=== PATIENT | female | born 1945 | race Caucasian/White ===

== ENCOUNTER 2018-02-19 10:32 | Emergency (ER) | payer MEDICARE ==
--- NOTE | 2018-02-19 11:12 | ER Document Report ---
ED Medical Screen (RME) - General Chief Complaint: Fall Injury Stated Complaint: FALL/FOOT PAIN Time Seen by Provider: 02/19/18 11:10 Mode of Arrival: Ambulatory Information source: Patient TRAVEL OUTSIDE OF THE [place] IN LAST 30 DAYS: No - HPI Patient complains to provider of: R foot pain Onset: Other - pt. fell 4 days ago. C/o R foot pain - Related Data Allergies/Adverse Reactions: No Known Allergies Allergy (Verified 02/19/18 10:33) Past Medical History - Past Medical History Cardiac Medical History: Reports: Hx Hypercholesterolemia, Hx Hypertension - meds x 7 years Denies: Hx Coronary Artery Disease, Hx Heart Attack Pulmonary Medical History: Reports: Hx Asthma, Hx Bronchitis Denies: Hx COPD, Hx Pneumonia Neurological Medical History: Denies: Hx Cerebrovascular Accident, Hx Seizures Musculoskeltal Medical History: Reports Hx Arthritis Past Surgical History: Reports: Hx Appendectomy, Hx Cardiac Surgery - A/V pacemaker, Hx Pacemaker - Medtronic, pacemaker checklist on chart, Hx Tonsillectomy - Immunizations Hx Diphtheria, Pertussis, Tetanus Vaccination: Yes - 2006 Physical Exam - Vital signs Vitals: Temp Pulse Resp BP Pulse Ox 98.8 F 80 16 156/53 H 97 02/19/18 10:48 02/19/18 10:48 02/19/18 10:48 02/19/18 10:48 02/19/18 10:48 Course - Vital Signs Vital signs: Temp Pulse Resp BP Pulse Ox 98.8 F 80 16 156/53 H 97 02/19/18 10:48 02/19/18 10:48 02/19/18 10:48 02/19/18 10:48 02/19/18 10:48 Doctor's Discharge - Discharge Referrals: KANNAN HOU MD [Primary Care Provider] - Follow up as needed
--- NOTE | 2018-02-19 11:35 | RADIOLOGY REPORT (SQ) ---
EXAM DESCRIPTION: FOOT RIGHT COMPLETE COMPLETED DATE/TIME: 02/19/2018 11:25 am REASON FOR STUDY: fall pain delayed for a month COMPARISON: None. NUMBER OF VIEWS: Three views. TECHNIQUE: AP, lateral and oblique radiographic images acquired of the right foot. LIMITATIONS: None. FINDINGS: MINERALIZATION: Normal. BONES: No acute fracture or dislocation. No worrisome bone lesions. JOINTS: No effusions. SOFT TISSUES: No soft tissue swelling. No foreign body. OTHER: No other significant finding. IMPRESSION: NEGATIVE STUDY OF THE RIGHT FOOT. NO RADIOGRAPHIC EVIDENCE OF ACUTE INJURY. TECHNICAL DOCUMENTATION: JOB ID: [id number] [employer]- All Rights Reserved Reading location - IP/workstation name: [email or web address]
[2018-02-19] MEDS ORDERED: ACETAMINOPHEN 325 MG TABLET PO ONE (11:53)
--- NOTE | 2018-02-19 11:59 | ER Document Report ---
HPI - HPI Pain Level: 2 Notes: Patient is a 72-year-old female with a history of chronic back pain, sciatica bilaterally, pacemaker placement who presents to the emergency department complaining of right lateral dorsal foot pain status post injury about a month ago. Patient states that she is walking and she had a flareup of her sciatica causing her to roll her ankle/foot. Pt states that she has sciatica flare-ups often. Patient states that she has had continued intermittent pain since then, but increasing over the last couple days. She has not noticed any redness or swelling otherwise. The pain does not radiate. Patient states that she is still able to ambulate and perform ADLs without any other difficulties. Patient states that she is here to make sure she did not break anything in her foot. She has not seen a specialist in about a year. Denies drug allergies. Denies any prolonged immobilization, distance travel, recent surgery/trauma, personal cancer history, hormone use, smoking, or previous DVT/PE. Denies any headache, fever, head injury, LOC, neck pain, changes in vision/speech/mentation/hearing, URI, sore throat, chest pain, palpitations, syncope, cough, shortness of breath, wheeze, dyspnea, abdominal pain, nausea/vomiting/diarrhea, urinary retention, dysuria, hematuria, loss of control of bowel or bladder, saddle anesthesia, muscle paralysis/weakness, or rash. - ROS Systems Reviewed and Negative: Yes All other systems reviewed and negative - REPRODUCTIVE Reproductive: DENIES: : - DERM Skin Color: Normal <NICA MARTÍNEZ - Last Filed: 02/19/18 11:54> <STEFAN WILKERSON - Last Filed: 02/20/18 08:18> - HPI Time Seen by Provider: 02/19/18 11:10 Past Medical History - General Information source: Patient - Social History Smoking Status: Former Smoker Frequency of alcohol use: 2 drinks a day Drug Abuse: None Family History: Reviewed & Not Pertinent Patient has suicidal ideation: No Patient has homicidal ideation: No - Past Medical History Cardiac Medical History: Reports: Hx Hypercholesterolemia, Hx Hypertension - meds x 7 years Denies: Hx Coronary Artery Disease, Hx Heart Attack Pulmonary Medical History: Reports: Hx Asthma, Hx Bronchitis Denies: Hx COPD, Hx Pneumonia Neurological Medical History: Denies: Hx Cerebrovascular Accident, Hx Seizures Renal/ Medical History: Denies: Hx Peritoneal Dialysis Musculoskeletal Medical History: Reports Hx Arthritis Past Surgical History: Reports: Hx Appendectomy, Hx Cardiac Surgery - A/V pacemaker, Hx Pacemaker - Medtronic, pacemaker checklist on chart, Hx Tonsillectomy - Immunizations Hx Diphtheria, Pertussis, Tetanus Vaccination: Yes - 2006 Hx Pneumococcal Vaccination: 10/18/10 <NICA MARTÍNEZ - Last Filed: 02/19/18 11:54> Vertical Provider Document - CONSTITUTIONAL Agree With Documented VS: Yes Notes: PHYSICAL EXAMINATION: GENERAL: Well-appearing, well-nourished and in no acute distress. LUNGS: Breath sounds clear to auscultation bilaterally and equal. No wheezes rales or rhonchi. HEART: Regular rate and rhythm without murmurs, rubs, gallops. Musculoskeletal: Rt foot/ankle: FROM to passive/active. Strength 5+/5. N/V intact distal. + tenderness to the area of the ATFL (reproduces pain described). No bony tenderness of the foot. Achilles intact. Extremities: Trace pitting b/l. Peripheral pulses 2+. Capillary refill less than 3 seconds. Paul neg b/l. NEUROLOGICAL: Normal speech, normal gait. Normal sensory, motor exams PSYCH: Normal mood, normal affect. SKIN: Warm, Dry, normal turgor, no rashes or lesions noted. - INFECTION CONTROL TRAVEL OUTSIDE OF THE [place] IN LAST 30 DAYS: No <NICA MARTÍNEZ - Last Filed: 02/19/18 11:54> Course - Re-evaluation Re-evalutation: 02/19/18 11:58 Patient is an afebrile, well-hydrated, 72-year-old female who presents to the ED with Rt foot pain which I suspect to be a sprain versus strain. Vitals are acceptable without any significant tachycardia, tachypnea, or hypoxia. PE is otherwise unremarkable for any neurovascular compromise, obvious tendon/ligament rupture, obvious fracture/dislocation, septic joint. X-ray was unremarkable for any acute pathology. Pt given tylenol PO. Patient is nontoxic-appearing. Patient is able to ambulate and weight-bear. No other labs or imaging warranted at this time based on H&P. Conservative measures otherwise for symptoms. Recheck with your PCM in 3-5 days. Consider consult orthopedics. Return to the ED with any worsening/concerning symptoms otherwise as reviewed in discharge. Patient is in agreement. - Vital Signs Vital signs: Temp Pulse Resp BP Pulse Ox 98.8 F 80 16 156/53 H 97 02/19/18 10:48 02/19/18 10:48 02/19/18 10:48 02/19/18 10:48 02/19/18 10:48 <NICA MARTÍNEZ - Last Filed: 02/19/18 11:54> - Vital Signs Vital signs: Temp Pulse Resp BP Pulse Ox 99.4 F 78 20 132/78 H 97 02/19/18 12:16 02/19/18 12:16 02/19/18 12:16 02/19/18 12:16 02/19/18 12:16 <STEFAN WILKERSON - Last Filed: 02/20/18 08:18> Discharge <NICA MARTÍNEZ - Last Filed: 02/19/18 11:54> <STEFAN WILKERSON - Last Filed: 02/20/18 08:18> - Discharge Clinical Impression: Right foot pain Condition: Stable Disposition: HOME, SELF-CARE Additional Instructions: Rest, Ice, Compression, Elevation Tylenol/ibuprofen as needed Light stretches daily Strength exercises as able Moist heat and massage may help F/u with your PCP in 3-5 days for a recheck Consider consult(s) with Orthopedics/physical therapy for ongoing/worsening symptoms Return to the ED with any worsening symptoms and/or development of fever, headache, chest pain, palpitations, syncope, shortness of breath, trouble breathing, abdominal pain, n/v/d, muscle weakness/paralysis, numbness/tingling, swelling, redness, or other worsening symptoms that are concerning to you. Forms: Elevated Blood Pressure Referrals: KANNAN HOU MD [ACTIVE STAFF] - Follow up as needed [facility] [Provider Group] - Follow up as needed Cosign for MLP Consult - Cosign -: I was personally available for consultation in the Emergency Department and serving as supervising physician for the MLP. Cosign for MLP: . <STEFAN WILKERSON - Last Filed: 02/20/18 08:18>
[2018-02-19 12:20] VITALS: BP 132/78
== END 2018-02-19 12:20 | disposition home or self-care (01) ==
LOC: ER 10:32
DX: M79.671 Pain in right foot (principal); X50.9XXA Other and unspecified overexertion or strenuous movements or postures, initial encounter; Y93.01 Activity, walking, marching and hiking; I10 Essential (primary) hypertension; J45.909 Unspecified asthma, uncomplicated; Z95.0 Presence of cardiac pacemaker; Z87.891 Personal history of nicotine dependence
CPT/HCPCS: 99283

== ENCOUNTER → 2018-04-03 | Outpatient (CLI) | payer MEDICARE ==
--- NOTE | 2018-04-03 11:21 | RADIOLOGY REPORT (SQ) ---
EXAM DESCRIPTION: CAROTID DOPPLER COMPLETED DATE/TIME: 04/03/2018 10:02 am REASON FOR STUDY: ATHEROSCLEROSIS I10 ESSENTIAL (PRIMARY) HYPERTENSION I25.10 ATHSCL HEART DISEASE OF [place] CORONARY ARTERY W/O AN COMPARISON: None. TECHNIQUE: Grayscale ultrasound, Doppler velocity and spectra, and color Doppler images acquired of the extra-cranial carotid and vertebral arteries. Images stored on PACS. LIMITATIONS: None. FINDINGS: RIGHT CAROTID CCA Velocities: Within normal limits. ICA Velocities Peak systolic 0.63 m/s. End diastolic 0.19 m/s. Proximal ICA/CCA peak systolic ratio 1.9. Mild heterogeneous plaque distal common and proximal right ICA. LEFT CAROTID CCA Velocities: Within normal limits. ICA Velocities Peak systolic 0.81 m/s. End diastolic 0.9 m/s. Proximal ICA/CCA peak systolic ratio 2.2. Minimal plaque in the bulb. VERTEBRAL ARTERIES: Antegrade flow. Normal waveforms. SUBCLAVIAN ARTERIES: Not imaged. OTHER: No other significant finding. IMPRESSION: NO HEMODYNAMICALLY SIGNIFICANT STENOSIS. COMMENT: Quality ID #195: Velocity criteria are extrapolated from the diameter data as defined by t he Society of Radiologists in Ultrasound Consensus Conference. Radiology 2003: 229; 340-346. TECHNICAL DOCUMENTATION: JOB ID: [id number] [employer]- All Rights Reserved Reading location - IP/workstation name: [email or web address]
== END ==
LOC: SP 08:35
PROVIDERS: ATTEND Family Medicine
DX: I25.10 Atherosclerotic heart disease of native coronary artery without angina pectoris (principal)
CPT/HCPCS: 93880

== ENCOUNTER → 2018-05-03 | Outpatient (CLI) | payer MEDICARE ==
--- NOTE | 2018-05-05 19:09 | XCELERA REPORT ---
[address] [address] Lower Extremity Arterial Evaluation Name: KANCHAN DASH Age: 72 yrs Gender: Female : 1945 Patient Status: Preadmit Patient Location: Study Date: 05/03/2018 09:13 AM Procedure: A color flow and duplex scan of the lower extremity arteries was performed bilaterally with velocity and waveform anaylsis. Reason For Study: ABSCENCE OF PULSES Ordering Physician: NEHA BROWN Performed By: Tommie Doyle Measurements and Calculations Right Left MICA PATCHER PSV 127.3 127.3 cm/sec Prox PFA PSV -78.9 -87.1 cm/sec Prox SFA PSV 94.8 93.0 cm/sec Mid SFA PSV -85.5 -99.3 cm/sec Dist SFA PSV -71.7 -87.7 cm/sec Prox Pop A PSV 68.1 61.3 cm/sec Dist ANA PSV 85.4 75.5 cm/sec Mid MANUFACTURING ENGINEER MACHINING PSV 54.1 cm/sec Dist MANUFACTURING ENGINEER MACHINING PSV -41.9 110.6 cm/sec Corona Pedis PSV -33.2 -70.7 cm/sec Right Side Arterial Evaluation Normal velocity and triphasic waveforms noted from the Common Femoral artery to the infrageniculate level. Triphasic, no spectral broadening with low normal velocity in the Dorsalis Pedis and distal Posterior Tibial arteries. Retrograde flow in distal Posterior Tibial Ankle Brachial index not obtained. Left Side Arterial Evaluation Normal velocity and triphasic waveforms noted from the Common Femoral artery to the infrageniculate vessels . Ankle Brachial index not obtained. Interpretation Summary Mild hemodynamically significant lesions in the right lower extremity only, on duplex imaging, at rest. No hemodynamically significant lesions in the left lower extremity only, on duplex imaging, at rest. Findings in infrageniculate right side, consistent with well compensated , mild disease. : NEHA BROWN > Neha Brown
== END ==
LOC: SP 13:19
PROVIDERS: ATTEND Surgery
DX: R09.89 Other specified symptoms and signs involving the circulatory and respiratory systems (principal)
CPT/HCPCS: 93925

== ENCOUNTER 2018-10-10 14:33 | Inpatient (IN) | payer MEDICARE ==
[2018-10-10 14:58] LABS: INTERNATIONAL RATION (INR) 0.98; PARTIAL THROMBOPLASTIN TIME 26.9 SEC (23.5-35.8)
--- NOTE | 2018-10-10 15:03 | RADIOLOGY REPORT (SQ) ---
EXAM DESCRIPTION: CT HEAD WITHOUT COMPLETED DATE/TIME: 10/10/2018 2:47 pm REASON FOR STUDY: STROKE COMPARISON: CT brain 01/28/2011, 08/20/2006 TECHNIQUE: Axial images acquired through the brain without intravenous contrast. Images reviewed wi th bone, brain and subdural windows. Additional sagittal and coronal reconstructions were generated. Images stored on PACS. All CT scanners at this facility use dose modulation, iterative reconstruction, and/or weight based d osing when appropriate to reduce radiation dose to as low as reasonably achievable (ALARA). [facility]: Dose Right [facility]: CareDose [facility]: Dose Right [facility]: Teradose 4D [facility]: [employer] RADIATION DOSE: 53 mGy. LIMITATIONS: None. FINDINGS: VENTRICLES: Normal size and contour. CEREBRUM: No masses. No hemorrhage. No midline shift. No evidence for acute infarction. Normal gra y/white matter differentiation. No areas of low density in the white matter. CEREBELLUM: No masses. No hemorrhage. No alteration of density. No evidence for acute infarction. EXTRAAXIAL SPACES: No fluid collections. No masses. ORBITS AND GLOBE: No intra- or extraconal masses. Post cataract surgery bilaterally. CALVARIUM: No fracture. PARANASAL SINUSES: No fluid or mucosal thickening. SOFT TISSUES: No mass or hematoma. OTHER: No other significant finding. IMPRESSION: NORMAL BRAIN CT WITHOUT CONTRAST. EVIDENCE OF ACUTE STROKE: NO. COMMENT: Pertinent findings on the imaging study reported as a CRITICAL RESULT to the patient's kary se in the emergency room at14:25 on 10/10/2018. Category of Critical Result: CT code stroke Quality ID # 436: Final reports with documentation of one or more dose reduction techniques (e.g., Au tomated exposure control, adjustment of the mA and/or kV according to patient size, use of iterative reconstruction technique) TECHNICAL DOCUMENTATION: JOB ID: [id number] [employer]- All Rights Reserved Reading location - IP/workstation name: [email or web address]
[2018-10-10 15:04] LABS: ABSOLUTE LYMPHOCYTES (AUTO) 1.2 10^3/uL (0.5-4.7); ABSOLUTE NEUT (AUTO) 4.4 10^3/uL (1.7-8.2); BASOPHILS % (AUTO) 0.3 % (0-2); EOSINOPHILS % (AUTO) 0.3 % (0-6); HEMATOCRIT 35.8 % (36.0-47.0); HEMOGLOBIN 12.5 g/dL (12.0-15.5); LYMPHOCYTES % (AUTO) 18.5 % (13-45); MEAN CORPUSCULAR HGB CONC 35.1 g/dL (32.0-36.0); MEAN CORPUSCULAR VOLUME 97 fl (80-97); MONOCYTES % (AUTO) 14.5 % (3-13); PLATELET COUNT 178 10^3/uL (150-450); RED BLOOD COUNT 3.69 10^6/uL (3.72-5.28); RED CELL DISTRIBUTION WIDTH 12.8 % (11.5-14.0); SEGMENTED NEUTROPHILS % (AUTO) 66.4 % (42-78); TOTAL CELLS COUNTED % (AUTO) 100 %; WHITE BLOOD COUNT 6.6 10^3/uL (4.0-10.5)
[2018-10-10] MEDS ORDERED: CLONIDINE HCL 0.1 MG TABLET PO ONE ×2 (15:09→17:30)
--- NOTE | 2018-10-10 15:11 | RADIOLOGY REPORT (SQ) ---
EXAM DESCRIPTION: CHEST SINGLE VIEW COMPLETED DATE/TIME: 10/10/2018 3:00 pm REASON FOR STUDY: STROKE COMPARISON: 04/17/2014 EXAM PARAMETERS: NUMBER OF VIEWS: One view. TECHNIQUE: Single frontal radiographic view of the chest acquired. RADIATION DOSE: NA LIMITATIONS: None. FINDINGS: LUNGS AND PLEURA: No opacities, masses or pneumothorax. No pleural effusion. MEDIASTINUM AND HILAR STRUCTURES: No masses. Contour normal. HEART AND VASCULAR STRUCTURES: Heart normal in size. Normal vasculature. BONES: No acute findings. HARDWARE: Pacemaker. OTHER: No other significant finding. IMPRESSION: NO ACUTE RADIOGRAPHIC FINDING IN THE CHEST. TECHNICAL DOCUMENTATION: JOB ID: [id number] [employer]- All Rights Reserved Reading location - IP/workstation name: [email or web address]
[2018-10-10 15:23] LABS: BLOOD UREA NITROGEN 13 mg/dL (7-20); CALCIUM 9.6 mg/dL (8.4-10.2); CARBON DIOXIDE 28 mmol/L (22-30); CHLORIDE 90 mmol/L (98-107); GLUCOSE 126 mg/dL (75-110); POTASSIUM 3.9 mmol/L (3.6-5.0)
[2018-10-10 15:24] LABS: ALBUMIN 4.6 g/dL (3.5-5.0); ALKALINE PHOSPHATASE 60 U/L (38-126); ANION GAP 11 (5-19); ASPARTATE AMINO TRANSFERASE 50 U/L (14-36); BILIRUBIN,DIRECT 0.3 mg/dL (0.0-0.4); BILIRUBIN,TOTAL 1.1 mg/dL (0.2-1.3); CREATINE KINASE 352 U/L (30-135); TOTAL PROTEIN 6.9 g/dL (6.3-8.2)
[2018-10-10 15:35] LABS: CREATINE KINASE MB 3.93 ng/mL (<4.55)
[2018-10-10 15:40] LABS: TROPONIN I < 0.012 ng/mL
[2018-10-10] MEDS ORDERED: CLONIDINE HCL 0.1 MG TABLET ONE (15:44)
--- NOTE | 2018-10-10 16:41 | RADIOLOGY REPORT (SQ) ---
EXAM DESCRIPTION: LUMBAR PUNCTURE COMPLETED DATE/TIME: 10/10/2018 4:32 pm REASON FOR STUDY: HEADACHE, NECK PAIN, AND CONFUSION COMPARISON: CT brain 10/10/2018 FLUOROSCOPY TIME: 1.9 minutes 3 digital fluoroscopic images saved to PACS. TECHNIQUE: Fluoroscopic guided lumbar puncture, unsuccessful. LIMITATIONS: None. PROCEDURE: After written consent and assessment were obtained, the patient was brought into the fluo roscopy room and placed prone on the table. The patient's lower back was prepped in a sterile fashio n and an entry site was selected under live fluoroscopic guidance. Attempts at a obtaining CSF were made via left paracentral approach at L3-4 and right paracentral approach at L4-5. We were unable to obtain and diagnostic quantity of cerebrospinal fluid for culture. A fluoroscopic spot image was sa cora to PACS confirming level access. FINDINGS: Unsuccessful lumbar puncture be a left paracentral approach at L3-4, and right paracentral approach at L4-5. This was discussed with Dr. Bass in the emergency room IMPRESSION: Unsuccessful lumbar puncture be a left paracentral approach at L3-4, and right paracentr al approach at L4-5. This was discussed with Dr. Bass in the emergency room COMMENT: Patient medication list reviewed: Yes- Quality ID# 130:Eligible professional attests to doc umenting in the medical record they obtained, updated, or reviewed the patient's current medications. . Quality ID 145: Final reports for procedures using fluoroscopy that document radiation exposure tyra yosef, or exposure time and number of fluorographic images (if radiation exposure indices are not avail able) TECHNICAL DOCUMENTATION: JOB ID: [id number] [employer]- All Rights Reserved Reading location - IP/workstation name: [email or web address]
[2018-10-10] MEDS ORDERED: ACETAMINOPHEN 325 MG TABLET PO ONE (17:30)
[2018-10-10] MEDS ORDERED: ONDANSETRON HCL INJ/PF 4 MG/2 ML SDV IV ONE (17:57)
--- NOTE | 2018-10-10 18:10 | RADIOLOGY REPORT (SQ) ---
EXAM DESCRIPTION: CTA HEAD COMPLETED DATE/TIME: 10/10/2018 5:55 pm REASON FOR STUDY: Headache, hypertension COMPARISON: CT brain done earlier the same day. TECHNIQUE: Post IV contrast scanning, thin section axial imaging through the brain to evaluate the a rterial structures. Source and MIP images are saved and reviewed on PACS. Advanced 3D imaging as volume-rendering, MIPs, SSD performed? yes All CT scanners at this facility use dose modulation, iterative reconstruction, and/or weight based d osing when appropriate to reduce radiation dose to as low as reasonably achievable (ALARA). [facility]: Dose Right [facility]: CareDose [facility]: Dose Right [facility]: Teradose 4D [facility]: [employer] CONTRAST TYPE AND DOSE: contrast/concentration: Isovue 350.00 mg/ml; Total Contrast Delivered: 70.0 ml; Total Saline Delivered: 75.0 ml RENAL FUNCTION: BUN 12, creatinine 0.63 LIMITATIONS: None. FINDINGS: [place]: The anterior, middle, posterior cerebral arteries are all patent. No ev idence of aneurysm or focal stenosis. POSTERIOR CIRCULATION: The distal vertebral arteries are patent as is the basilar artery. No aneurysm . BRAIN: No gross enhancing lesions as visualized. The superior cerebral hemispheres are not included in the field of view. BONES: Intact as visualized. SINUSES: No fluid or mucosal thickening. OTHER: No other significant finding. IMPRESSION: NO CTA EVIDENCE OF STENOSIS OR ANEURYSM OF THE [place]. TECHNICAL DOCUMENTATION: JOB ID: [id number] Quality ID # 436: Final reports with documentation of one or more dose reduction techniques (e.g., Au tomated exposure control, adjustment of the mA and/or kV according to patient size, use of iterative reconstruction technique) 2010 [employer]- All Rights Reserved Reading location - IP/workstation name: [email or web address]
--- NOTE | 2018-10-10 18:12 | RADIOLOGY REPORT (SQ) ---
EXAM DESCRIPTION: CTA NECK COMPLETED DATE/TIME: 10/10/2018 5:55 pm REASON FOR STUDY: Headache, hypertension COMPARISON: None. TECHNIQUE: Axial dynamic scanning technique with dynamic contrast enhancement through the extra-ethylbenzene cracking supervisor nial carotid and vertebral arteries. Multiplanar reconstruction. 3-D MIPS and Volume-rendered imag es acquired at the workstation and saved to PACS. Images are reviewed in soft tissue, bone, lung w indows. All CT scanners at this facility use dose modulation, iterative reconstruction, and/or weight based d osing when appropriate to reduce radiation dose to as low as reasonably achievable (ALARA). [facility]: Dose Right [facility]: CareDose [facility]: Dose Right [facility]: Teradose 4D [facility]: [employer] CONTRAST TYPE AND DOSE: 70 mL Omnipaque 350 RENAL FUNCTION: BUN 12, creatinine 0.63 LIMITATIONS: None. FINDINGS: AORTIC ARCH: Normal three-vessel origin. Bilateral subclavian arteries are patent. No d issection. RIGHT CAROTIDS: Patent common, internal and external carotid arteries without suggestion of significa nt stenosis or irregular plaque. No dissection. Mild calcified plaque in the carotid bulb. RIGHT VERTEBRAL: Patent. No dissection. LEFT CAROTIDS: Patent common, internal and external carotid arteries without suggestion of significan t stenosis or irregular plaque. No dissection. LEFT VERTEBRAL: Patent. No dissection. OTHER: No other significant finding. OTHER: 3-D reconstructions confirm findings. IMPRESSION: Mild calcified plaque is noted in the right carotid bulb. No hemodynamically significan t stenosis on the right or left. COMMENT: Quality ID #195: Measurements of distal internal carotid diameter were used as the denomina tor for stenosis measurement. TECHNICAL DOCUMENTATION: JOB ID: [id number] Quality ID # 436: Final reports with documentation of one or more dose reduction techniques (e.g., Au tomated exposure control, adjustment of the mA and/or kV according to patient size, use of iterative reconstruction technique) 2010 [employer]- All Rights Reserved Reading location - IP/workstation name: [email or web address]
[2018-10-10] MEDS ORDERED: ONDANSETRON HCL INJ/PF 4 MG/2 ML SDV IV PRN (18:42)
[2018-10-10] MEDS ORDERED: ACETAMINOPHEN 325 MG TABLET PO PRN (18:42)
[2018-10-10] MEDS ORDERED: IPRATROPIUM/ALBUTEROL 0.5-2.5 MG/3 ML AMPUL NEB PRN (18:42)
[2018-10-10] MEDS ORDERED: ATENOLOL 50 MG TABLET PO ONE (18:45)
[2018-10-10] MEDS ORDERED: HYDRALAZINE HCL INJ/PF 20 MG/1 ML SDV IV PRN (18:49)
[2018-10-10] MEDS ORDERED: GLUCAGON,HUMAN RECOMB 1 MG INJ IM PRN (18:50)
[2018-10-10] MEDS ORDERED: DEXTROSE 40% GEL 15 GM TUBE PO PRN ×2 (18:50)
[2018-10-10] MEDS ORDERED: DEXTROSE 50%-WATER 25 GM/50 ML DISP.SYRIN IV PRN ×2 (18:50)
--- NOTE | 2018-10-10 19:07 | ER Document Report ---
ED General - General Chief Complaint: Altered Mental Status Stated Complaint: POSSIBLE STROKE Time Seen by Provider: 10/10/18 15:04 Notes: Patient is here for evaluation of a headache, neck pain, and nausea and vomiting. Patient awakened this morning and felt her usual normal self but soon noted that she had frontal headache and both posterior sides of the neck hurt, especially to move or touch. She does not exhibit any stiff neck. She had a dental appointment and went to the dentist office and they told her her blood pressure was too high and to come to the emergency department. Patient has a history of high blood pressure and is taking atenolol 50 mg daily, and mixture of triamterene 75 mg plus HCTZ 50 mg once a day. Patient says she has been taking her medication and has not missed taking it. She has been nauseated and has vomited a couple times before arriving here. Patient denies any recent illness or fever. EMS says the patient was disoriented and confused. They noted a blood pressure 188/72. Patient says that she felt that she was confused somewhat, but a friend saw her being taken away by EMS and thought the patient acted her usual normal self at that time. Patient has never had a stroke. TRAVEL OUTSIDE OF THE [place] IN LAST 30 DAYS: No - Related Data Allergies/Adverse Reactions: No Known Allergies Allergy (Verified 02/19/18 10:33) Past Medical History - Social History Smoking Status: Former Smoker - Stopped many years ago. Family History: Reviewed & Not Pertinent Patient has suicidal ideation: No Patient has homicidal ideation: No - Past Medical History Cardiac Medical History: Reports: Hx Hypercholesterolemia, Hx Hypertension - meds x 7 years Pulmonary Medical History: Reports: Hx Asthma, Hx Bronchitis Neurological Medical History: Denies: Hx Cerebrovascular Accident, Hx Seizures GI Medical History: Reports: Hx Gastroesophageal Reflux Disease Musculoskeletal Medical History: Reports Hx Arthritis Past Surgical History: Reports: Hx Appendectomy, Hx Cardiac Surgery - A/V pacemaker, Hx Pacemaker - Medtronic, pacemaker checklist on chart, Hx Tonsillectomy - Immunizations Hx Diphtheria, Pertussis, Tetanus Vaccination: Yes - 2006 Hx Pneumococcal Vaccination: 10/18/10 Review of Systems - Review of Systems Notes: REVIEW OF SYSTEMS: CONSTITUTIONAL : Denies fever. EENT: Denies eye, ear, nose or mouth or throat pain or other symptoms. CARDIOVASCULAR: Denies chest pain. RESPIRATORY: Denies cough, chest congestion, or shortness of breath. GASTROINTESTINAL: Denies abdominal pain and no diarrhea, but does have nausea and vomiting. See HPI. GENITOURINARY: Denies difficulty or painful urinating, urinary frequency, blood in urine. MUSCULOSKELETAL: Denies back or neck pain. Denies joint pain or swelling. SKIN: Denies rash or skin lesions. NEUROLOGICAL: Denies LOC but may be some altered mental status and confusion. Denies sensory loss or motor deficits. ALL OTHER SYSTEMS REVIEWED AND NEGATIVE. Physical Exam - Vital signs Vitals: Pulse Resp BP Pulse Ox 88 20 207/77 H 97 10/10/18 14:40 10/10/18 14:40 10/10/18 14:40 10/10/18 14:40 Interpretation: Hypertensive. No: Febrile Notes: PHYSICAL EXAMINATION: GENERAL: Well-appearing, in no acute distress. Complains of frontal headache and pain and tender in the posterior lateral aspects of both sides of the neck, but no stiffness or rigidity of the neck. HEAD: Atraumatic, normocephalic. EYES: Pupils equal round and reactive to light, extraocular movements intact. ENT: oropharynx clear without exudates. Moist mucous membranes. NECK: Normal range of motion, supple. LUNGS: Breath sounds clear and equal bilaterally. HEART: Regular rate and rhythm without murmurs. ABDOMEN: Soft, nontender. No guarding or rebound. No masses. BACK: No tenderness throughout entire back. EXTREMITIES: Normal range of motion without pain. NEUROLOGICAL: Normal speech, normal gait. Normal sensory, motor, and reflex exams. Awake, alert, and oriented x3. SKIN: Warm, dry, no rashes. Course - Re-evaluation Re-evalutation: 10/10/18 19:13 Patient was initially given 0.1 mg of clonidine p.o. for her hypertension with systolic in 220 region. About 30 minutes later, patient systolic blood pressure was around 205. She continued to complain of a headache. CT scan of her head was negative for stroke or any acute findings. I do not think the patient has a stiff neck, just some pain in her neck. Also in her forehead. We attempted to get a LP under fluoroscopy, but the radiologist was not able to get into the spinal column on 2 tries. Patient does not behave like a patient with meningitis. Afebrile. White count normal. Cannot exclude the possibility that the patient might have a subarachnoid hemorrhage, but not visible on CT scan and patient has no lateralizing neurologic findings. Spoke with Dr. Dee, who is this patient's primary care provider, and he requests that we get a CTA of the patient's head and neck. Patient CTA of the head and neck were negative for any acute findings. Patient was given a second pill of clonidine 0.1 mg p.o. She was also started on her atenolol 50 mg p.o. Patient will be admitted to [facility] for close observation. - Vital Signs Vital signs: Temp Pulse Resp BP Pulse Ox 97.9 F 60 14 139/44 H 93 10/11/18 07:27 10/11/18 14:46 10/11/18 14:46 10/11/18 07:27 10/11/18 14:46 - Laboratory Result Diagrams: 10/11/18 06:59 10/11/18 06:59 Laboratory results interpreted by me: 10/10/18 10/10/18 14:42 14:42 RBC 3.69 L Hct 35.8 L MCH 34.0 H Orange % (Auto) 14.5 H Sodium 128.8 L Chloride 90 L Glucose 126 H AST 50 H Creatine Kinase 352 H - Diagnostic Test Radiology reviewed: Image reviewed, Reports reviewed - CT scan of the brain showed no acute findings. CTA of the brain and CTA of the neck showed no abnormalities. - EKG Interpretation by Me Rate: Normal When compared to previous EKG there are: Previous EKG unavailable Additional EKG results interpreted by me: 10/10/18 19:22 EKG shows an atrial paced rhythm at a rate of 73. No other changes can be interpreted. Critical Care Note - Critical Care Note Total time excluding time spent on procedures (mins): 45 Discharge - Discharge Clinical Impression: Hypertension, Vomiting Headache Qualifiers: Headache chronicity pattern: chronic headache Intractability: intractable Condition: Stable Disposition: ADMITTED INPATIENT Admitting Provider: Luiz Unit Admitted: [facility]
--- NOTE | 2018-10-10 19:40 | Progress Note ---
Provider Note Provider Note: pt seen and exam in er
[2018-10-10] MEDS ORDERED: CEFTRIAXONE 2 GM/D5W RTU 2 GM/50 ML RTUPB IV SCH (20:00)
[2018-10-10 20:51] LABS: CREATINE KINASE MB 2.64 ng/mL (<4.55); TROPONIN I < 0.012 ng/mL
[2018-10-10] MEDS: 1/2 NORMAL SALINE 1,000 ML IV PRN (21:17)
[2018-10-10] MEDS ORDERED: HYDROCHLOROTHIAZIDE 12.5 MG TABLET PO SCH (22:00)
[2018-10-10] MEDS: INSULIN LISPRO 100 UNIT/ML 3 ML VIAL SUBCUT SCH (23:02)
[2018-10-10] MEDS: ATORVASTATIN CALCIUM 10 MG TABLET PO SCH (23:08)
[2018-10-10] MEDS: PANTOPRAZOLE SODIUM 40 MG VIAL IV SCH (23:12)
--- NOTE | 2018-10-10 23:20 | EKG REPORT ---
SEVERITY:- ABNORMAL ECG - ATRIAL-SENSED VENTRICULAR-PACED RHYTHM : Confirmed by: Duoglas Oliver 10-Oct-2018 23:19:50
[2018-10-11 01:45] LABS: CREATINE KINASE MB 2.42 ng/mL (<4.55); TROPONIN I 0.019 ng/mL
[2018-10-11 04:42] LABS: URINE AMPHETAMINES SCREEN NEGATIVE; URINE BARBITURATES SCREEN NEGATIVE; URINE BENZODIAZEPINES SCREEN NEGATIVE; URINE COCAINE SCREEN NEGATIVE; URINE MARIJUANA (THC) SCREEN NEGATIVE; URINE METHADONE SCREEN NEGATIVE; URINE PHENCYCLIDINE SCREEN NEGATIVE
[2018-10-11 07:13] LABS: ABSOLUTE LYMPHOCYTES (AUTO) 1.6 10^3/uL (0.5-4.7); ABSOLUTE NEUT (AUTO) 3.6 10^3/uL (1.7-8.2); BASOPHILS % (AUTO) 0.5 % (0-2); EOSINOPHILS % (AUTO) 0.6 % (0-6); HEMATOCRIT 34.1 % (36.0-47.0); HEMOGLOBIN 11.7 g/dL (12.0-15.5); LYMPHOCYTES % (AUTO) 25.6 % (13-45); MEAN CORPUSCULAR HEMOGLOBIN 33.7 pg (27.0-33.4); MEAN CORPUSCULAR HGB CONC 34.4 g/dL (32.0-36.0); MEAN CORPUSCULAR VOLUME 98 fl (80-97); MONOCYTES % (AUTO) 16.4 % (3-13); PLATELET COUNT 163 10^3/uL (150-450); RED BLOOD COUNT 3.48 10^6/uL (3.72-5.28); RED CELL DISTRIBUTION WIDTH 12.5 % (11.5-14.0); SEGMENTED NEUTROPHILS % (AUTO) 56.9 % (42-78); TOTAL CELLS COUNTED % (AUTO) 100 %; WHITE BLOOD COUNT 6.3 10^3/uL (4.0-10.5)
[2018-10-11 07:25] LABS: ANION GAP 8 (5-19); BLOOD UREA NITROGEN 11 mg/dL (7-20); CALCIUM 9.2 mg/dL (8.4-10.2); CARBON DIOXIDE 30 mmol/L (22-30); CHLORIDE 91 mmol/L (98-107); GLUCOSE 95 mg/dL (75-110); POTASSIUM 3.9 mmol/L (3.6-5.0)
[2018-10-11 07:37] LABS: CREATINE KINASE MB 2.38 ng/mL (<4.55)
[2018-10-11 07:40] LABS: TROPONIN I < 0.012 ng/mL
[2018-10-11] MEDS: INSULIN LISPRO 100 UNIT/ML 3 ML VIAL SUBCUT SCH ×4 (07:40→22:19)
--- NOTE | 2018-10-11 08:27 | PDOC H&P ---
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 with some nausea vomiting complaining of headache front and the back and not feeling well Patient's went to the [facility] office today and patient's blood pressure was elevated around 180 range and patient does not have any dental procedure done then patients called the EMS because of the headache EMS brought the patient in the emergency department noted some disorientation's but when we encountered the patient in the ER with the ER physicians patient is fully oriented x4 She also have a history of the chronic back pain and a chronic headache according to the patient she has this headache on and off for a so many years and sometimes patients feel tingling and numbness on the hand with the neuropathy In the emergency department patient received a clonidine 1 dose and patient's blood pressure is coming down to 180 range from [address] of the head was negative patient CT angiogram of the head and neck is also negative At this point decided to admit the patient's for the headache which most likely according to the patient have a migraine history and also hypertension urgency will further evaluate and treat Patient's denied any chest pain to than any shortness of the breath She is currently see a cardiology at [facility] for a pacemaker Past Medical History Cardiac Medical History: Reports: Hyperlipidema, Hypertension - meds x 7 years, Other Denies: Coronary Artery Disease, Myocardial Infarction Cardiac History Note: Status post pacemaker due to the heart block Pulmonary Medical History: Reports: Asthma, Bronchitis Denies: Chronic Obstructive Pulmonary Disease (COPD), Pneumonia Neurological Medical History: Denies: Seizures Endocrine History Note: Impaired fasting glucose GI Medical History: Reports: Gastroesophageal Reflux Disease Musculoskeltal Medical History: Reports: Arthritis Musculoskeletal History Note: Chronic back pain with a lumbar radiculopathy Hematology: Denies: Anemia Past Surgical History Past Surgical History: Reports: Appendectomy, Cardiac Catheterization, Pacemaker - Medtronic, pacemaker checklist on chart, Tonsillectomy Social History Smoking Status: Former Smoker Last Time Smoked: 2006 Frequency of Alcohol Use: Heavy Hx Recreational Drug Use: No Drugs: None - Advance Directive Resuscitation Status: Full Code Family History Family History: Reviewed & Not Pertinent Parental Family History Reviewed: Yes Children Family History Reviewed: Yes Sibling(s) Family History Reviewed.: Yes Medication/Allergy Home Medications: Aspirin [Adult Low Dose Aspirin EC] 81 mg PO DAILY 10/10/18 Atenolol [Tenormin 50 mg Tablet] 50 mg PO DAILY 10/10/18 Cholecalciferol (Vitamin D3) [Vitamin D3 1000 Unit Tablet] 1,000 unit PO DAILY 10/10/18 Cyanocobalamin (Vitamin B-12) [Vitamin B-12 1000 mcg Tablet] 1,000 mcg PO DAILY 10/10/18 Glucosamine/Methylsulfonylmeth [Glucosamine-MSM 500-400 mg Cap] 1 cap PO DAILY 10/10/18 Pravastatin Sodium [Pravachol] 20 mg PO DAILY 10/10/18 Thiamine HCl [Vitamin B-1] 50 mg PO DAILY 10/10/18 Triamterene/Hydrochlorothiazid [Maxzide 75 mg-50 mg Tablet] 1 tab PO DAILY 10/10/18 Allergies/Adverse Reactions: No Known Allergies Allergy (Verified 02/19/18 10:33) Review of Systems Constitutional: PRESENT: headache(s). ABSENT: chills, fever(s), weight gain, weight loss Eyes: ABSENT: visual disturbances Ears: ABSENT: hearing changes Cardiovascular: ABSENT: chest pain, dyspnea on exertion, edema, orthropnea, palpitations Respiratory: ABSENT: cough, hemoptysis Gastrointestinal: ABSENT: abdominal pain, constipation, diarrhea, hematemesis, hematochezia, nausea, vomiting Genitourinary: ABSENT: dysuria, hematuria Musculoskeletal: ABSENT: joint swelling Integumentary: ABSENT: rash, wounds Neurological: ABSENT: abnormal gait, abnormal speech, confusion, dizziness, focal weakness, syncope Psychiatric: ABSENT: anxiety, depression, homidical ideation, suicidal ideation Endocrine: ABSENT: cold intolerance, heat intolerance, menstrual abnormalities, polydipsia, polyuria Hematologic/Lymphatic: ABSENT: easy bleeding, easy bruising, lymphadenopathy Physical Exam Vital Signs: Temp Pulse Resp BP Pulse Ox 97.5 F 60 20 136/57 H 94 10/11/18 04:21 10/11/18 07:00 10/11/18 04:21 10/11/18 04:21 10/11/18 04:21 Intake & Output 10/10/18 10/11/18 10/12/18 06:59 06:59 06:59 Intake Total 200 Output Total 0 Balance 200 Weight 60.9 kg General appearance: PRESENT: no acute distress, well-developed, well-nourished Head exam: PRESENT: atraumatic, normocephalic Eye exam: PRESENT: conjunctiva pink, EOMI, PERRLA. ABSENT: scleral icterus Ear exam: PRESENT: normal external ear exam Mouth exam: PRESENT: moist, tongue midline Neck exam: PRESENT: full ROM. ABSENT: carotid bruit, JVD, lymphadenopathy, thyromegaly Respiratory exam: PRESENT: clear to auscultation shelley Cardiovascular exam: PRESENT: RRR. ABSENT: diastolic murmur, rubs, systolic murmur Pulses: PRESENT: normal dorsalis pedis pul, +2 pedal pulses bilateral Vascular exam: PRESENT: normal capillary refill GI/Abdominal exam: PRESENT: normal bowel sounds, soft. ABSENT: distended, guarding, mass, organolmegaly, rebound, tenderness Rectal exam: PRESENT: deferred Extremities exam: ABSENT: pedal edema Musculoskeletal exam: PRESENT: ambulatory Neurological exam: PRESENT: alert, awake, oriented to person, oriented to place, oriented to time, oriented to situation, reflexes normal, CN II-XII grossly intact, normal gait. ABSENT: motor sensory deficit Additional comments: No neck rigidity no meningeal sign Psychiatric exam: PRESENT: appropriate affect, normal mood. ABSENT: homicidal ideation, suicidal ideation Skin exam: PRESENT: dry, intact, warm. ABSENT: cyanosis, rash Results Laboratory Results: 10/11/18 06:59 10/11/18 06:59 10/10/18 10/10/18 10/10/18 14:42 14:42 18:30 WBC 6.6 RBC 3.69 L Hgb 12.5 Hct 35.8 L MCV 97 MCH 34.0 H MCHC 35.1 RDW 12.8 Plt Count 178 Seg Neutrophils % 66.4 Sodium 128.8 L Potassium 3.9 Chloride 90 L Carbon Dioxide 28 Anion Gap 11 BUN 13 Creatinine 0.63 Est GFR ( Amer) > 60 Glucose 126 H Lactic Acid 0.9 Calcium 9.6 Magnesium Total Bilirubin 1.1 AST 50 H Alkaline Phosphatase 60 Total Protein 6.9 Albumin 4.6 10/11/18 10/11/18 06:59 06:59 WBC 6.3 RBC 3.48 L Hgb 11.7 L Hct 34.1 L MCV 98 H MCH 33.7 H MCHC 34.4 RDW 12.5 Plt Count 163 Seg Neutrophils % 56.9 Sodium 129.2 L Potassium 3.9 Chloride 91 L Carbon Dioxide 30 Anion Gap 8 BUN 11 Creatinine 0.73 Est GFR ( Amer) > 60 Glucose 95 Lactic Acid Calcium 9.2 Magnesium 1.7 Total Bilirubin AST Alkaline Phosphatase Total Protein Albumin 10/10/18 10/10/18 10/10/18 14:42 14:42 19:44 Creatine Kinase 352 H 304 H CK-MB (CK-2) 3.93 Troponin I < 0.012 10/10/18 10/11/18 10/11/18 19:44 00:55 00:55 Creatine Kinase 213 H CK-MB (CK-2) 2.64 2.42 Troponin I < 0.012 0.019 10/11/18 10/11/18 06:59 06:59 Creatine Kinase 202 H CK-MB (CK-2) 2.38 Troponin I < 0.012 Impressions: Chest X-Ray 10/10/18 00:00 IMPRESSION: NO ACUTE RADIOGRAPHIC FINDING IN THE CHEST. Head CT 10/10/18 00:00 IMPRESSION: NORMAL BRAIN CT WITHOUT CONTRAST. EVIDENCE OF ACUTE STROKE: NO. Lumbar Puncture 10/10/18 00:00 IMPRESSION: Unsuccessful lumbar puncture be a left paracentral approach at L3- 4, and right paracentral approach at L4-5. This was discussed with Dr. Bass in the emergency room Head CTA 10/10/18 17:26 IMPRESSION: NO CTA EVIDENCE OF STENOSIS OR ANEURYSM OF THE [place]. Neck CTA 10/10/18 17:26 IMPRESSION: Mild calcified plaque is noted in the right carotid bulb. No hemodynamically significant stenosis on the right or left. Assessment & Plan - Diagnosis (1) Headache Qualifiers: Headache chronicity pattern: chronic headache Intractability: intractable Is this a current diagnosis for this admission?: Yes Plan: Most likely due to the migraine episodes patient's currently feel better after the receiving the Tylenol and the clonidine Patient's initial CT head CT angiogram is all negative Discussed with the patient about the chronic medications for prophylactic Topamax but patients do not want to go for that medicines will continues to headache diary monitor may be contributed to today's episode because of the elevated blood pressures also No sign of any stroke (2) Hypertensive urgency Is this a current diagnosis for this admission?: Yes Plan: Currently getting better will continues to add Tylenol 50 mg cut down the Dyazide because of the hyponatremia and may be consider at the losartan (3) Cardiac pacemaker Is this a current diagnosis for this admission?: Yes Plan: We will consult the cardiology (4) Migraine headache Qualifiers: Intractability: intractable Is this a current diagnosis for this admission?: Yes Plan: Currently better Use the PRN Fioricet (5) Peripheral vascular disease Is this a current diagnosis for this admission?: Yes Plan: Patient is currently see a vascular surgery (6) Hyperlipidemia Qualifiers: Hyperlipidemia type: unspecified Qualified Code(s): E78.5 - Hyperlipidemia, unspecified Is this a current diagnosis for this admission?: Yes (7) Fatty liver Is this a current diagnosis for this admission?: Yes - Time Time Spent: 50 to 70 Minutes Medications reviewed and adjusted accordingly: Yes Anticipated discharge: Home Within: within 24 hours - Inpatient Certification Based on my medical assessment, after consideration of the patient's comorbidities, presenting symptoms, or acuity I expect that the services needed warrant INPATIENT care.: Yes I certify that my determination is in accordance with my understanding of Medicare's requirements for reasonable and necessary INPATIENT services [42 CFR 412.3e].: Yes Medical Necessity: Significant Comorbidiites Make Outpatient Treatment Too Risky, Need Close Monitoring Due to Risk of Patient Decompensation, Need For Continuous Telemetry Monitoring Post Hospital Care: D/C Fusing Line Inspector Documentation - Plan Summary Plan Summary: Admit the patient in IMCU See MD orders
--- NOTE | 2018-10-11 08:30 | PDOC PROGRESS REPORT ---
Subjective Progress Note for:: 10/11/18 Subjective:: Patient is feeling much better His blood pressure is running 1 30-1 40 range Patient's headache is pretty much all resolved No chest pain no short of breath No fever no chills No nausea no vomiting Reason For Visit: HYPERTENSIVE URGENCY Physical Exam Vital Signs: Temp Pulse Resp BP Pulse Ox 97.5 F 60 20 136/57 H 94 10/11/18 04:21 10/11/18 07:00 10/11/18 04:21 10/11/18 04:21 10/11/18 04:21 Intake & Output 10/10/18 10/11/18 10/12/18 06:59 06:59 06:59 Intake Total 200 Output Total 0 Balance 200 Weight 60.9 kg General appearance: PRESENT: no acute distress, well-developed, well-nourished Head exam: PRESENT: atraumatic, normocephalic Eye exam: PRESENT: conjunctiva pink, EOMI, PERRLA. ABSENT: scleral icterus Ear exam: PRESENT: normal external ear exam Mouth exam: PRESENT: moist, tongue midline Neck exam: PRESENT: full ROM. ABSENT: carotid bruit, JVD, lymphadenopathy, thyromegaly Respiratory exam: PRESENT: clear to auscultation shelley Cardiovascular exam: PRESENT: RRR. ABSENT: diastolic murmur, rubs, systolic murmur Pulses: PRESENT: normal dorsalis pedis pul, +2 pedal pulses bilateral Vascular exam: PRESENT: normal capillary refill GI/Abdominal exam: PRESENT: normal bowel sounds, soft. ABSENT: distended, guarding, mass, organolmegaly, rebound, tenderness Rectal exam: PRESENT: deferred Musculoskeletal exam: PRESENT: ambulatory Neurological exam: PRESENT: alert, awake, oriented to person, oriented to place, oriented to time, oriented to situation, CN II-XII grossly intact. ABSENT: motor sensory deficit Psychiatric exam: PRESENT: appropriate affect, normal mood. ABSENT: homicidal ideation, suicidal ideation Skin exam: PRESENT: dry, intact, warm. ABSENT: cyanosis, rash Results Laboratory Results: 10/11/18 06:59 10/11/18 06:59 10/10/18 10/10/18 10/10/18 14:42 14:42 18:30 WBC 6.6 RBC 3.69 L Hgb 12.5 Hct 35.8 L MCV 97 MCH 34.0 H MCHC 35.1 RDW 12.8 Plt Count 178 Seg Neutrophils % 66.4 Sodium 128.8 L Potassium 3.9 Chloride 90 L Carbon Dioxide 28 Anion Gap 11 BUN 13 Creatinine 0.63 Est GFR ( Amer) > 60 Glucose 126 H Lactic Acid 0.9 Calcium 9.6 Magnesium Total Bilirubin 1.1 AST 50 H Alkaline Phosphatase 60 Total Protein 6.9 Albumin 4.6 10/11/18 10/11/18 06:59 06:59 WBC 6.3 RBC 3.48 L Hgb 11.7 L Hct 34.1 L MCV 98 H MCH 33.7 H MCHC 34.4 RDW 12.5 Plt Count 163 Seg Neutrophils % 56.9 Sodium 129.2 L Potassium 3.9 Chloride 91 L Carbon Dioxide 30 Anion Gap 8 BUN 11 Creatinine 0.73 Est GFR ( Amer) > 60 Glucose 95 Lactic Acid Calcium 9.2 Magnesium 1.7 Total Bilirubin AST Alkaline Phosphatase Total Protein Albumin 10/10/18 10/10/18 10/10/18 14:42 14:42 19:44 Creatine Kinase 352 H 304 H CK-MB (CK-2) 3.93 Troponin I < 0.012 10/10/18 10/11/18 10/11/18 19:44 00:55 00:55 Creatine Kinase 213 H CK-MB (CK-2) 2.64 2.42 Troponin I < 0.012 0.019 10/11/18 10/11/18 06:59 06:59 Creatine Kinase 202 H CK-MB (CK-2) 2.38 Troponin I < 0.012 Impressions: Chest X-Ray 10/10/18 00:00 IMPRESSION: NO ACUTE RADIOGRAPHIC FINDING IN THE CHEST. Head CT 10/10/18 00:00 IMPRESSION: NORMAL BRAIN CT WITHOUT CONTRAST. EVIDENCE OF ACUTE STROKE: NO. Lumbar Puncture 10/10/18 00:00 IMPRESSION: Unsuccessful lumbar puncture be a left paracentral approach at L3- 4, and right paracentral approach at L4-5. This was discussed with Dr. Bass in the emergency room Head CTA 10/10/18 17:26 IMPRESSION: NO CTA EVIDENCE OF STENOSIS OR ANEURYSM OF THE [place]. Neck CTA 10/10/18 17:26 IMPRESSION: Mild calcified plaque is noted in the right carotid bulb. No hemodynamically significant stenosis on the right or left. Assessment & Plan - Diagnosis (1) Headache Qualifiers: Headache chronicity pattern: chronic headache Intractability: intractable Is this a current diagnosis for this admission?: Yes Plan: Currently all resolving most likely a migraine related With hypertension's (2) Hypertensive urgency Is this a current diagnosis for this admission?: Yes Plan: Currently resolved we adjust the blood pressure medications (3) Cardiac pacemaker Is this a current diagnosis for this admission?: Yes (4) Migraine headache Qualifiers: Intractability: intractable Is this a current diagnosis for this admission?: Yes Plan: Patients do not want to try any prophylactic medications (5) Peripheral vascular disease Is this a current diagnosis for this admission?: Yes (6) Hyperlipidemia Qualifiers: Hyperlipidemia type: unspecified Qualified Code(s): E78.5 - Hyperlipidemia, unspecified Is this a current diagnosis for this admission?: Yes (7) Fatty liver Is this a current diagnosis for this admission?: Yes (8) Chronic arthritis Is this a current diagnosis for this admission?: Yes Plan: Will get the CT of the C-spine most likely patient have a radiculopathy in the lumbar spine same thing radiculopathy in the C-spine which causing sometimes numbness in the both hand - Time Time Spent with patient: 25-34 minutes Medications reviewed and adjusted accordingly: Yes Anticipated discharge: Home Within: within 24 hours - Plan Summary Plan Summary: Patient is currently doing well continues to monitor The physical therapy evaluations
[2018-10-11] MEDS ORDERED: HYDROCHLOROTHIAZIDE 12.5 MG TABLET PO SCH (10:00)
[2018-10-11] MEDS ORDERED: LOSARTAN POTASSIUM 25 MG TABLET PO SCH ×2 (10:00)
[2018-10-11] MEDS ORDERED: (PENDING PHARMACY ID) (Thiamine Hcl [Vitamin B-1] 50 MG) PO SCH (10:00)
[2018-10-11] MEDS: THIAMINE HCL 100 MG TABLET PO SCH (10:46)
[2018-10-11] MEDS: DOCUSATE SODIUM 100 MG CAPSULE PO SCH (10:46)
[2018-10-11] MEDS: ASPIRIN 81 MG TABLET, ENT COATED PO SCH (10:46)
[2018-10-11] MEDS: ATENOLOL 50 MG TABLET PO SCH (10:47)
[2018-10-11] MEDS: CYANOCOBALAMIN (VITAMIN B-12) 1,000 MCG TABLET PO SCH (10:47)
[2018-10-11] MEDS: PANTOPRAZOLE SODIUM 40 MG VIAL IV SCH ×2 (10:47→22:25)
--- NOTE | 2018-10-11 11:33 | RADIOLOGY REPORT (SQ) ---
EXAM DESCRIPTION: CT CERVICAL SPINE WITHOUT COMPLETED DATE/TIME: 10/11/2018 11:07 am REASON FOR STUDY: Radiculopathy neck pain COMPARISON: None. TECHNIQUE: Axial images acquired through the cervical spine without intravenous contrast. Images re viewed with lung, soft tissue and bone windows. Reconstructed coronal and sagittal MPR images review ed. Images stored on PACS. All CT scanners at this facility use dose modulation, iterative reconstruction, and/or weight based d osing when appropriate to reduce radiation dose to as low as reasonably achievable (ALARA). [facility]: Dose Right [facility]: CareDose [facility]: Dose Right [facility]: Teradose 4D [facility]: Invodo RADIATION DOSE: CT Rad equipment meets quality standard of care and radiation dose reduction techniq ues were employed. CTDIvol: 19.1 mGy. DLP: 485 mGy-cm. mGy. LIMITATIONS: None. FINDINGS: ALIGNMENT: Anatomic. MINERALIZATION: Normal. VERTEBRAL BODIES: No fractures or dislocation. DISCS: Multilevel disc space narrowing with osteophytes. FACETS, LATERAL MASSES, POSTERIOR ELEMENTS: Facet arthropathy. No fracture. There is no high-grade central canal stenosis. HARDWARE: None in the spine. VISUALIZED RIBS: No fractures. LUNG APICES AND SOFT TISSUES: No significant or acute findings. OTHER: There is a small amount of gas demonstrated at the 3 4 level most likely secondary to disc deg enerative disease and vacuum phenomena. IMPRESSION: CHRONIC DEGENERATIVE CHANGES. NO ACUTE FINDINGS. TECHNICAL DOCUMENTATION: JOB ID: [id number] Quality ID # [id number]: Final reports with documentation of one or more dose reduction techniques (e.g., Au tomated exposure control, adjustment of the mA and/or kV according to patient size, use of iterative reconstruction technique) 2010 [employer]- All Rights Reserved Reading location - IP/workstation name: [email or web address]
[2018-10-11] MEDS: 1/2 NORMAL SALINE 1,000 ML IV PRN (17:32)
[2018-10-11] MEDS: ATORVASTATIN CALCIUM 10 MG TABLET PO SCH (22:22)
[2018-10-11] MEDS: LOSARTAN POTASSIUM 25 MG TABLET PO SCH (22:23)
[2018-10-12 04:50] LABS: ABSOLUTE EOSINOPHILS # (AUTO) 0.1 10^3/uL (0.0-0.6); ABSOLUTE LYMPHOCYTES (AUTO) 1.9 10^3/uL (0.5-4.7); ABSOLUTE MONOCYTES (AUTO) 1.2 10^3/uL (0.1-1.4); ABSOLUTE NEUT (AUTO) 4.5 10^3/uL (1.7-8.2); BASOPHILS % (AUTO) 0.6 % (0-2); EOSINOPHILS % (AUTO) 1.4 % (0-6); HEMATOCRIT 34.8 % (36.0-47.0); LYMPHOCYTES % (AUTO) 24.2 % (13-45); MEAN CORPUSCULAR HEMOGLOBIN 33.7 pg (27.0-33.4); MEAN CORPUSCULAR HGB CONC 34.4 g/dL (32.0-36.0); MEAN CORPUSCULAR VOLUME 98 fl (80-97); MONOCYTES % (AUTO) 15.9 % (3-13); PLATELET COUNT 158 10^3/uL (150-450); RED BLOOD COUNT 3.55 10^6/uL (3.72-5.28); RED CELL DISTRIBUTION WIDTH 12.5 % (11.5-14.0); SEGMENTED NEUTROPHILS % (AUTO) 57.9 % (42-78); TOTAL CELLS COUNTED % (AUTO) 100 %; WHITE BLOOD COUNT 7.7 10^3/uL (4.0-10.5)
[2018-10-12 05:05] LABS: ANION GAP 5 (5-19); BLOOD UREA NITROGEN 12 mg/dL (7-20); CALCIUM 9.2 mg/dL (8.4-10.2); CARBON DIOXIDE 31 mmol/L (22-30); CHLORIDE 97 mmol/L (98-107); GLUCOSE 120 mg/dL (75-110); POTASSIUM 4.1 mmol/L (3.6-5.0)
--- NOTE | 2018-10-12 08:35 | PDOC DISCHARGE SUMMARY ---
General - Admit/Disc Date/PCP Admission Date/Primary Care Provider: 10/10/18 19:05 ADAMA MARES MD Discharge Date: 10/12/18 - Discharge Diagnosis (1) Headache Is this a current diagnosis for this admission?: Yes Summary: Most likely a migraine headache currently all resolved Patients do not want to take any medications Follow with the outpatients neurology (2) Hypertensive urgency Is this a current diagnosis for this admission?: Yes Summary: all resolved (3) Cardiac pacemaker Is this a current diagnosis for this admission?: Yes Summary: Currently all stable follow with the cardiology (4) Migraine headache Is this a current diagnosis for this admission?: Yes Summary: Patients do not want to try any medications currently denied any headache he comes in the episodic patient CT of the head and neck is all negative even including the angiogram (5) Peripheral vascular disease Is this a current diagnosis for this admission?: Yes (6) Hyperlipidemia Is this a current diagnosis for this admission?: Yes (7) Fatty liver Is this a current diagnosis for this admission?: Yes (8) Chronic arthritis Is this a current diagnosis for this admission?: Yes - Additional Information Resuscitation Status: Full Code Discharge Diet: Cardiac Discharge Activity: Activity As Tolerated Prescriptions: Losartan Potassium [Cozaar 25 mg Tablet] 25 mg PO Q12 #60 tablet Omeprazole 20 mg PO DAILY #30 capsule. Home Medications: Aspirin [Adult Low Dose Aspirin EC] 81 mg PO DAILY 10/10/18 Atenolol [Tenormin 50 mg Tablet] 50 mg PO DAILY 10/10/18 Cholecalciferol (Vitamin D3) [Vitamin D3 1000 Unit Tablet] 1,000 unit PO DAILY 10/10/18 Cyanocobalamin (Vitamin B-12) [Vitamin B-12 1000 mcg Tablet] 1,000 mcg PO DAILY 10/10/18 Glucosamine/Methylsulfonylmeth [Glucosamine-MSM 500-400 mg Cap] 1 cap PO DAILY 10/10/18 Pravastatin Sodium [Pravachol] 20 mg PO DAILY 10/10/18 Thiamine HCl [Vitamin B-1] 50 mg PO DAILY 10/10/18 Losartan Potassium [Cozaar 25 mg Tablet] 25 mg PO Q12 #60 tablet 10/12/18 Omeprazole 20 mg PO DAILY #30 capsule. 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 with some nausea vomiting complaining of headache front and the back and not feeling well Patient's went to the [facility] office today and patient's blood pressure was elevated around 180 range and patient does not have any dental procedure done then patients called the EMS because of the headache EMS brought the patient in the emergency department noted some disorientation's but when we encountered the patient in the ER with the ER physicians patient is fully oriented x4 She also have a history of the chronic back pain and a chronic headache according to the patient she has this headache on and off for a so many years and sometimes patients feel tingling and numbness on the hand with the neuropathy In the emergency department patient received a clonidine 1 dose and patient's bl ood pressure is coming down to 180 range from [address] of the head was negative patient CT angiogram of the head and neck is also negative At this point decided to admit the patient's for the headache which most likely according to the patient have a migraine history and also hypertension urgency will further evaluate and treat Patient's denied any chest pain to than any shortness of the breath She is currently see a cardiology at [facility] for a pacemaker Hospital Course Hospital Course: This is a 73-year-old female is presenting the emergency department with the complaining of a headache with elevated blood pressures initial CT of the head was negative for any strokes Patient's does not have any other symptoms of all structures the headache and vomiting which patients have on and off since so many years but this time patients feel more worse Patient also underwent for the CT angiograms of the head and neck which is negative for any acute findings Patient at this point require only one clonidine to control the blood pressures which I believe is not really hypertensive urgency because of the acute sudden migraine headaches Patient does not have any fever all blood culture is negative's Patient seen by the cardiology Dr. Boyle because of the cardiac pacemaker and coronary disease and adjust the blood pressure medications patient's all blood work is stable Patient's went back to the normal patient's Dyazide was stopped due to the and hyponatremia Patient's blood pressures currently all stable Patient's had a physical therapy walk without any problems Patient's denied any headache no nausea no vomiting Denied any other symptoms Patients follow outpatients neurology and cardiology Physical Exam Vital Signs: Temp Pulse Resp BP Pulse Ox 97.6 F 73 20 154/65 H 93 10/12/18 03:27 10/12/18 07:00 10/12/18 03:27 10/12/18 03:27 10/12/18 03:27 Intake & Output 10/11/18 10/12/18 10/13/18 06:59 06:59 06:59 Intake Total 200 2039 Output Total 0 0 Balance 200 2039 Weight 60.9 kg 61.6 kg General appearance: PRESENT: no acute distress, well-developed, well-nourished Head exam: PRESENT: atraumatic, normocephalic Eye exam: PRESENT: conjunctiva pink, EOMI, PERRLA. ABSENT: scleral icterus Ear exam: PRESENT: normal external ear exam Mouth exam: PRESENT: moist, tongue midline Neck exam: PRESENT: full ROM. ABSENT: carotid bruit, JVD, lymphadenopathy, thyromegaly Respiratory exam: PRESENT: clear to auscultation shelley Cardiovascular exam: PRESENT: RRR. ABSENT: diastolic murmur, rubs, systolic murmur Pulses: PRESENT: normal dorsalis pedis pul, +2 pedal pulses bilateral Vascular exam: PRESENT: normal capillary refill GI/Abdominal exam: PRESENT: normal bowel sounds, soft. ABSENT: distended, guarding, mass, organolmegaly, rebound, tenderness Rectal exam: PRESENT: deferred Musculoskeletal exam: PRESENT: ambulatory Neurological exam: PRESENT: alert, awake, oriented to person, oriented to place, oriented to time, oriented to situation, reflexes normal, CN II-XII grossly intact, normal gait. ABSENT: motor sensory deficit Psychiatric exam: PRESENT: appropriate affect, normal mood. ABSENT: homicidal ideation, suicidal ideation Skin exam: PRESENT: dry, intact, warm. ABSENT: cyanosis, rash Results Laboratory Results: 10/12/18 04:31 10/12/18 04:31 10/12/18 10/12/18 04:31 04:31 WBC 7.7 RBC 3.55 L Hgb 12.0 Hct 34.8 L MCV 98 H MCH 33.7 H MCHC 34.4 RDW 12.5 Plt Count 158 Seg Neutrophils % 57.9 Sodium 133.2 L Potassium 4.1 Chloride 97 L Carbon Dioxide 31 H Anion Gap 5 BUN 12 Creatinine 0.68 Est GFR ( Amer) > 60 Glucose 120 H Calcium 9.2 Magnesium 1.8 10/10/18 10/10/18 10/10/18 14:42 14:42 19:44 Creatine Kinase 352 H 304 H CK-MB (CK-2) 3.93 Troponin I < 0.012 10/10/18 10/11/18 10/11/18 19:44 00:55 00:55 Creatine Kinase 213 H CK-MB (CK-2) 2.64 2.42 Troponin I < 0.012 0.019 10/11/18 10/11/18 06:59 06:59 Creatine Kinase 202 H CK-MB (CK-2) 2.38 Troponin I < 0.012 Impressions: Chest X-Ray 10/10/18 00:00 IMPRESSION: NO ACUTE RADIOGRAPHIC FINDING IN THE CHEST. Head CT 10/10/18 00:00 IMPRESSION: NORMAL BRAIN CT WITHOUT CONTRAST. EVIDENCE OF ACUTE STROKE: NO. Lumbar Puncture 10/10/18 00:00 IMPRESSION: Unsuccessful lumbar puncture be a left paracentral approach at L3- 4, and right paracentral approach at L4-5. This was discussed with Dr. Bass in the emergency room Head CTA 10/10/18 17:26 IMPRESSION: NO CTA EVIDENCE OF STENOSIS OR ANEURYSM OF THE [place]. Neck CTA 10/10/18 17:26 IMPRESSION: Mild calcified plaque is noted in the right carotid bulb. No hemodynamically significant stenosis on the right or left. Cervical Spine CT 10/11/18 00:00 IMPRESSION: CHRONIC DEGENERATIVE CHANGES. NO ACUTE FINDINGS. Qualifiers - * PATIENT BEING DISCHARGED WITH ANY OF THE FOLLOWING DIAGNOSIS: No Acute Heart Failure - Is this a Heart Failure Patient?: No Plan Time Spent: Greater than 30 Minutes - Currently all stable Follow outpatients neurology
[2018-10-12] MEDS: INSULIN LISPRO 100 UNIT/ML 3 ML VIAL SUBCUT SCH (08:50)
[2018-10-12 09:11] VITALS: BP 167/76
[2018-10-12] MEDS: PANTOPRAZOLE SODIUM 40 MG VIAL IV SCH (09:13)
[2018-10-12] MEDS: DOCUSATE SODIUM 100 MG CAPSULE PO SCH (09:14)
[2018-10-12] MEDS: THIAMINE HCL 100 MG TABLET PO SCH (09:16)
[2018-10-12] MEDS: ASPIRIN 81 MG TABLET, ENT COATED PO SCH (09:17)
[2018-10-12] MEDS: ATENOLOL 50 MG TABLET PO SCH (09:17)
[2018-10-12] MEDS: LOSARTAN POTASSIUM 25 MG TABLET PO SCH (09:17)
[2018-10-12] MEDS: CYANOCOBALAMIN (VITAMIN B-12) 1,000 MCG TABLET PO SCH (09:17)
== END 2018-10-12 11:00 | disposition home or self-care (01) | DRG 305 ==
LOC: ER 14:33 → EH 19:05 → 3W 21:35
PROVIDERS: ADMIT Family Medicine; ATTEND Family Medicine
PROC: 00JU3ZZ Inspection of Spinal Canal, Percutaneous Approach (ICD-10-PCS; principal; 2018-10-10)
DX: I16.0 Hypertensive urgency (principal); E87.1 Hypo-osmolality and hyponatremia; E78.5 Hyperlipidemia, unspecified; I25.10 Atherosclerotic heart disease of native coronary artery without angina pectoris; I73.9 Peripheral vascular disease, unspecified; K21.9 Gastro-esophageal reflux disease without esophagitis; G43.909 Migraine, unspecified, not intractable, without status migrainosus; K76.0 Fatty (change of) liver, not elsewhere classified; G62.9 Polyneuropathy, unspecified; M19.90 Unspecified osteoarthritis, unspecified site; J45.909 Unspecified asthma, uncomplicated; G89.29 Other chronic pain; M54.9 Dorsalgia, unspecified; Z79.899 Other long term (current) drug therapy; Z95.0 Presence of cardiac pacemaker; Z87.891 Personal history of nicotine dependence; Z79.82 Long term (current) use of aspirin
CPT/HCPCS: 36415; 62270; 70450; 70496; 70498; 71045; 72125; 80048; 80053; 80307; 82550; 82553; 82962; 83605; 83735; 84484; 85025; 85610; 85730; 87040; 87086; 87088; 87186; 93005; 93010; 96374; 99291; J0696; J2405; S0164

== ENCOUNTER → 2018-12-12 | Outpatient (CLI) | payer MEDICARE ==
--- NOTE | 2018-12-12 15:54 | RADIOLOGY REPORT (SQ) ---
EXAM DESCRIPTION: BARIUM SWALLOW ESOPHAGUS COMPLETED DATE/TIME: 12/12/2018 1:15 pm REASON FOR STUDY: DYSPHAGIA (R13.10) R13.10 DYSPHAGIA, UNSPECIFIED COMPARISON: None. TECHNIQUE: Under fluoroscopic guidance, patient ingested effervescent granules followed by thick and thin barium. Fluoroscopic spot images and routine radiographic images acquired and stored on PACS. 12 MM BARIUM TABLET GIVEN: Barium tablet passed through the esophagus and into the stomach without de lay. LIMITATIONS: None. FLUOROSCOPY TIME: FLUORO TIME: 2.5 minutes 5 images saved to PACS. FINDINGS: NEUROMUSCULAR COORDINATION OF SWALLOW: Normal. No aspiration. ESOPHAGEAL MOTILITY: Normal peristalsis. No esophageal spasm. ESOPHAGEAL MUCOSA: Normal mucosa without masses or ulceration. GASTRO-ESOPHAGEAL JUNCTION: Tiny hiatal hernia. No gastroesophageal reflux. NON-GI TRACT STRUCTURES: No significant finding. OTHER: No other significant finding. IMPRESSION: TINY HIATAL HERNIA. OTHERWISE UNREMARKABLE STUDY. RECOMMENDATION: None COMMENT: None Quality ID 145: Final reports for procedures using fluoroscopy that document radiation exposure tyra yosef, or exposure time and number of fluorographic images (if radiation exposure indices are not avail able) TECHNICAL DOCUMENTATION: JOB ID: [id number] [employer]- All Rights Reserved Reading location - IP/workstation name: [email or web address]
== END ==
LOC: RAD 09:20
PROVIDERS: ATTEND Physician Assistant
DX: K44.9 Diaphragmatic hernia without obstruction or gangrene (principal); R13.10 Dysphagia, unspecified
CPT/HCPCS: 74220

== ENCOUNTER 2018-12-19 16:36 | Inpatient (IN) | payer MEDICARE ==
--- NOTE | 2018-12-19 16:49 | ER Document Report ---
ED Medical Screen (RME) - General Stated Complaint: WEAKNESS/RIGHT ARM NUMBNESS Time Seen by Provider: 12/19/18 16:42 TRAVEL OUTSIDE OF THE [place] IN LAST 30 DAYS: No - HPI Notes: 12/19/18 73-year-old female to the emergency department with complaints of right hand numbness and weakness that has been going on for the past several days. She states that she has had episodes of this off and on and she had several today. She states that she called ambulance this morning but refused to come to the emergency department. She states that he then went to see her primary care physician, Dr. Dee and he urged her to come to the emergency department as well. She just recently had a stroke and is currently on Plavix. She denies any other symptoms I performed a brief medical screening exam on patient and determined that she wi ll need further management and care by me inside ER provider. I have placed initial orders to expedite her care. - Related Data Allergies/Adverse Reactions: No Known Allergies Allergy (Verified 12/19/18 16:49) Past Medical History - Past Medical History Cardiac Medical History: Reports: Hx Hypercholesterolemia, Hx Hypertension - meds x 7 years Denies: Hx Coronary Artery Disease, Hx Heart Attack Pulmonary Medical History: Reports: Hx Asthma, Hx Bronchitis Denies: Hx COPD, Hx Pneumonia Neurological Medical History: Denies: Hx Cerebrovascular Accident, Hx Seizures Renal/ Medical History: Denies: Hx Peritoneal Dialysis GI Medical History: Reports: Hx Gastroesophageal Reflux Disease Musculoskeltal Medical History: Reports Hx Arthritis Past Surgical History: Reports: Hx Appendectomy, Hx Cardiac Catheterization, Hx Cardiac Surgery - A/V pacemaker, Hx Pacemaker - Medtronic, pacemaker checklist on chart, Hx Tonsillectomy - Immunizations Hx Diphtheria, Pertussis, Tetanus Vaccination: Yes - 2006 Physical Exam - Vital signs Vitals: Pulse Resp BP Pulse Ox 65 21 H 154/61 H 96 12/19/18 19:07 12/19/18 19:07 12/19/18 19:07 12/19/18 19:07 Course - Vital Signs Vital signs: Temp Pulse Resp BP Pulse Ox 65 21 H 154/61 H 96 12/19/18 19:07 12/19/18 19:07 12/19/18 19:07 12/19/18 19:07 - Laboratory Result Diagrams: 12/19/18 17:35 12/19/18 17:35 Laboratory results interpreted by me: 12/19/18 12/19/18 17:35 17:35 MCV 98 H [place] % (Auto) 17.2 H Potassium 3.5 L Chloride 97 L Calcium 10.3 H Doctor's Discharge - Discharge Clinical Impression: Subacute CVA Condition: Serious Disposition: ADMITTED INPATIENT
--- NOTE | 2018-12-19 17:36 | RADIOLOGY REPORT (SQ) ---
EXAM DESCRIPTION: CHEST 2 VIEWS COMPLETED DATE/TIME: 12/19/2018 5:06 pm REASON FOR STUDY: hand weakness, hxof CVA COMPARISON: 10/10/2018 TECHNIQUE: Frontal and lateral radiographic views of the chest acquired. NUMBER OF VIEWS: Two view. LIMITATIONS: None. FINDINGS: LUNGS AND PLEURA: No pneumothorax. 1.2 cm nodular density overlying the right upper lobe. No consolidation or pleural effusion. MEDIASTINUM AND HILAR STRUCTURES: Stable. HEART AND VASCULAR STRUCTURES: Stable. BONES: No acute findings. HARDWARE: Cardiac pacer. OTHER: No other significant finding. IMPRESSION: 1.2 cm nodular density overlying the right upper lobe. No consolidation or pleural effu cory. TECHNICAL DOCUMENTATION: JOB ID: [id number] [place]-72 2010 [employer]- All Rights Reserved Reading location - IP/workstation name: [email or web address]
[2018-12-19 18:20] LABS: INTERNATIONAL RATION (INR) 1.04; PARTIAL THROMBOPLASTIN TIME 30.1 SEC (23.5-35.8); PROTHROMBIN TIME 13.6 SEC (11.4-15.4)
[2018-12-19 18:21] LABS: ABSOLUTE LYMPHOCYTES (AUTO) 1.8 10^3/uL (0.5-4.7); ABSOLUTE MONOCYTES (AUTO) 1.3 10^3/uL (0.1-1.4); ABSOLUTE NEUT (AUTO) 4.5 10^3/uL (1.7-8.2); BASOPHILS % (AUTO) 0.3 % (0-2); EOSINOPHILS % (AUTO) 0.3 % (0-6); HEMATOCRIT 38.8 % (36.0-47.0); HEMOGLOBIN 12.9 g/dL (12.0-15.5); LYMPHOCYTES % (AUTO) 23.3 % (13-45); MEAN CORPUSCULAR HEMOGLOBIN 32.6 pg (27.0-33.4); MEAN CORPUSCULAR HGB CONC 33.4 g/dL (32.0-36.0); MEAN CORPUSCULAR VOLUME 98 fl (80-97); MONOCYTES % (AUTO) 17.2 % (3-13); PLATELET COUNT 255 10^3/uL (150-450); RED BLOOD COUNT 3.97 10^6/uL (3.72-5.28); RED CELL DISTRIBUTION WIDTH 13.4 % (11.5-14.0); SEGMENTED NEUTROPHILS % (AUTO) 58.9 % (42-78); TOTAL CELLS COUNTED % (AUTO) 100 %; WHITE BLOOD COUNT 7.7 10^3/uL (4.0-10.5)
--- NOTE | 2018-12-19 18:22 | RADIOLOGY REPORT (SQ) ---
EXAM DESCRIPTION: CT HEAD WITHOUT COMPLETED DATE/TIME: 12/19/2018 6:05 pm REASON FOR STUDY: hand weakness, hxof CVA COMPARISON: 10/10/2018 TECHNIQUE: Axial images acquired through the brain without intravenous contrast. Images reviewed wit h bone, brain and subdural windows. Images stored on PACS. All CT scanners at this facility use dose modulation, iterative reconstruction, and/or weight based d osing when appropriate to reduce radiation dose to as low as reasonably achievable (ALARA). [facility]: Dose Right [facility]: CareDose [facility]: Dose Right [facility]: Teradose 4D [facility]: Smart [employer] RADIATION DOSE: CT Rad equipment meets quality standard of care and radiation dose reduction techniq ues were employed. CTDIvol: 48.5 mGy. DLP: 904 mGy-cm.. LIMITATIONS: None. FINDINGS: VENTRICLES: Normal size and contour. CEREBRUM: Small area of cortical-subcortical hypodensity in the posterior left parietal lobe, possibl e subacute infarct. No hemorrhage. No midline shift. Otherwise age appropriate white matter. CEREBELLUM: No masses. No hemorrhage. No alteration of density. No evidence for acute infarction. EXTRA-AXIAL SPACES: No fluid collections. ORBITS AND GLOBE: No intra- or extraconal masses. Normal contour of globe without masses. CALVARIUM: No fracture. PARANASAL SINUSES: No fluid or mucosal thickening. SOFT TISSUES: No mass or hematoma. OTHER: No other significant finding. IMPRESSION: Small area of cortical-subcortical hypodensity in the posterior left parietal lobe, poss ible subacute infarct. No hemorrhage. No midline shift. EVIDENCE OF ACUTE STROKE: YES. LEFT MCA COMMENT: The findings were sent to the Radiology Results Communication Center at 18:15 on 9 to be communicated to a licensed caregiver. TECHNICAL DOCUMENTATION: JOB ID: [id number] [place]-72 Quality ID # 436: Final reports with documentation of one or more dose reduction techniques (e.g., Au tomated exposure control, adjustment of the mA and/or kV according to patient size, use of iterative reconstruction technique) 2010 [employer]- All Rights Reserved Reading location - IP/workstation name: [email or web address]
[2018-12-19 18:30] LABS: ALBUMIN 4.5 g/dL (3.5-5.0); ALKALINE PHOSPHATASE 50 U/L (38-126); ANION GAP 12 (5-19); ASPARTATE AMINO TRANSFERASE 27 U/L (14-36); BILIRUBIN,DIRECT 0.1 mg/dL (0.0-0.4); BILIRUBIN,TOTAL 0.4 mg/dL (0.2-1.3); BLOOD UREA NITROGEN 17 mg/dL (7-20); CALCIUM 10.3 mg/dL (8.4-10.2); CARBON DIOXIDE 29 mmol/L (22-30); CHLORIDE 97 mmol/L (98-107); GLUCOSE 97 mg/dL (75-110); POTASSIUM 3.5 mmol/L (3.6-5.0); TOTAL PROTEIN 7.4 g/dL (6.3-8.2)
--- NOTE | 2018-12-19 18:51 | ER Document Report ---
ED General - General Chief Complaint: S/S of Possible Stroke Stated Complaint: WEAKNESS/RIGHT ARM NUMBNESS Time Seen by Provider: 12/19/18 16:42 Primary Care Provider: SUSU BULL PA [PHYSICIAN SYSTEM DEVELOPMENT MANAGER] - Follow up as needed TRAVEL OUTSIDE OF THE [place] IN LAST 30 DAYS: No - HPI Notes: 73-year-old female presenting with a chief complaint of dull headache and tingling of fingers and right hand past 3 days. This lady was referred to the emergency department from the office of Dr. Cliff Dee. Luiz reports that the patient had been hospitalized at [facility] with discharge in November she had an acute CVA with some transient impairment of her gait and her motor function dominant right upper extremity. She has had some mild persistent problems with swallowing and is on thickened liquids at home. She came into Dr. Dee's office today complaining of mild generalized weakness and increased tingling of the right hand and persistent dull generalized headache for 3 days. He did not feel that she had any new objective neurologic deficit but was nonetheless concerned enough to send her to the emergency department specifically requesting that we obtain a CT of the head. We note that the patient has a lifelong history of migraine headaches. The patient is currently on Plavix. - Related Data Allergies/Adverse Reactions: No Known Allergies Allergy (Verified 12/19/18 16:49) Past Medical History - General Information source: Patient, Friend - Social History Smoking Status: Former Smoker Chew tobacco use (# tins/day): No Frequency of alcohol use: Social Drug Abuse: None Lives with: Alone Family History: Reviewed & Not Pertinent Patient has suicidal ideation: No Patient has homicidal ideation: No - Past Medical History Cardiac Medical History: Reports: Hx Hypercholesterolemia, Hx Hypertension - meds x 7 years, Other - Pacemaker Denies: Hx Coronary Artery Disease, Hx Heart Attack Pulmonary Medical History: Reports: Hx Asthma, Hx Bronchitis Denies: Hx COPD, Hx Pneumonia Neurological Medical History: Reports: Hx Migraine. Denies: Hx Cerebrovascular Accident, Hx Seizures Renal/ Medical History: Denies: Hx Peritoneal Dialysis GI Medical History: Reports: Hx Gastroesophageal Reflux Disease Musculoskeletal Medical History: Reports Hx Arthritis Past Surgical History: Reports: Hx Appendectomy, Hx Cardiac Catheterization, Hx Cardiac Surgery - A/V pacemaker, Hx Pacemaker - Medtronic, pacemaker checklist on chart, Hx Tonsillectomy - Immunizations Hx Diphtheria, Pertussis, Tetanus Vaccination: Yes - 2006 Hx Pneumococcal Vaccination: 10/18/10 Review of Systems - Review of Systems Notes: Constitutional: Negative for fever. HENT: Negative for sore throat. Eyes: Negative for visual changes. Cardiovascular: Negative for chest pain. Respiratory: Negative for shortness of breath. Gastrointestinal: Negative for abdominal pain, vomiting or diarrhea. Genitourinary: Negative for dysuria. Musculoskeletal: Negative for back pain. Skin: Negative for rash. Neurological: Mild chronic gait impairment. Uses cane. 10 point ROS negative except as marked above and in HPI. Physical Exam - Vital signs Vitals: Pulse Resp BP Pulse Ox 65 21 H 154/61 H 96 12/19/18 19:07 12/19/18 19:07 12/19/18 19:07 12/19/18 19:07 Notes: GENERAL: Elderly well-nourished appearing in no acute distress. SKIN: Good turgor no rashes. HEAD: Normocephalic atraumatic. EYES: PERRLA. EOMI. Conjunctivae and sclerae clear. EARS: CANALS AND TMS CLEAR. NOSE: CLEAR. MOUTH: Moist mucosa. Good dentition. No stridor or edema. No drooling. Throat: Clear. NECK: Supple. No masses or thyromegaly. No adenopathy. Carotids 2+ without bruits. No JVD. BACK: Symmetrical without tenderness. CHEST: Respirations unlabored. Breath sounds clear and symmetrical. HEART: Regular rhythm. No murmur gallop or rub. ABDOMEN: Soft nontender without masses, organomegaly or rebound. Bowel sounds normally active. No bruits. GENITALIA: Deferred. EXTREMITIES: No edema. No calf tenderness. Cap refill less than 1.5 seconds. Dorsalis pedis and posterior tibial pulses 3+ and symmetrical. NEUROLOGICAL: GCS 15. Alert and oriented x3. Normal gait. Fluent speech. Cranial nerves II through XII intact. Mild subjective sensory decrease over right hand. Motor and cerebellar normal. Normal tone. Course - Re-evaluation Re-evalutation: : Findings consistent with subacute left MCA distribution stroke with minimal new deficit. She is clearly not a candidate for interventional radiology at this time or TPA. Findings have been discussed with Dr. Cliff Dee who plans to admit the patient and he is requested a CTA of head and neck. 12/19/18 20:42 - Vital Signs Vital signs: Temp Pulse Resp BP Pulse Ox 65 21 H 154/61 H 96 12/19/18 19:07 12/19/18 19:07 12/19/18 19:07 12/19/18 19:07 - Laboratory Result Diagrams: 12/19/18 17:35 12/19/18 17:35 Laboratory results interpreted by me: 12/19/18 12/19/18 17:35 17:35 MCV 98 H [place] % (Auto) 17.2 H Potassium 3.5 L Chloride 97 L Calcium 10.3 H - Diagnostic Test Radiology reviewed: Reports reviewed Discharge - Discharge Clinical Impression: Subacute CVA Condition: Serious Disposition: ADMITTED INPATIENT Admitting Provider: Dee Unit Admitted: IMCU Referrals: SUSU BULL PA [PHYSICIAN SYSTEM DEVELOPMENT MANAGER] - Follow up as needed
[2018-12-19] MEDS ORDERED: ACETAMINOPHEN 325 MG TABLET PO PRN (20:38)
[2018-12-19] MEDS ORDERED: POTASSIUM CHLORIDE 20 MEQ PACKET PO ONE (21:00)
[2018-12-19 21:50] LABS: CREATINE KINASE MB 1.22 ng/mL (<4.55)
[2018-12-19 21:56] LABS: TROPONIN I < 0.012 ng/mL
[2018-12-19] MEDS ORDERED: POTASSIUM CHLORIDE 10 MEQ CAPSULE.ER PO ONE (22:03)
[2018-12-19] MEDS: FAMOTIDINE 20 MG TABLET PO SCH (22:45)
[2018-12-19] MEDS: ATORVASTATIN CALCIUM 80 MG TABLET PO SCH (22:45)
[2018-12-19 23:08] LABS: APPEARANCE,URINE SLIGHTLY-CLOUDY; BILIRUBIN,URINE NEGATIVE (NEGATIVE); COLOR,URINE YELLOW; GLUCOSE, URINE NEGATIVE (NEGATIVE); KETONES,URINE 20 mg/dL (NEGATIVE); PROTEIN,URINE NEGATIVE (NEGATIVE); URINE SPECIFIC GRAVITY 1.031; UROBILINOGEN,URINE NEGATIVE mg/dL (<2.0)
--- NOTE | 2018-12-20 00:30 | EKG REPORT ---
SEVERITY:- ABNORMAL ECG - ATRIAL-SENSED VENTRICULAR-PACED COMPLEXES NONSPECIFIC INTRAVENTRICULAR CONDUCTION DELAY : Confirmed by: Eda Boyle MD 20-Dec-2018 00:29:41
[2018-12-20 03:14] LABS: RED BLOOD COUNT 3.76 10^6/uL (3.72-5.28); WHITE BLOOD COUNT 7.3 10^3/uL (4.0-10.5)
[2018-12-20 03:15] LABS: ABSOLUTE EOSINOPHILS # (AUTO) 0.1 10^3/uL (0.0-0.6); ABSOLUTE LYMPHOCYTES (AUTO) 2.1 10^3/uL (0.5-4.7); ABSOLUTE MONOCYTES (AUTO) 1.2 10^3/uL (0.1-1.4); ABSOLUTE NEUT (AUTO) 3.9 10^3/uL (1.7-8.2); BASOPHILS % (AUTO) 0.4 % (0-2); EOSINOPHILS % (AUTO) 0.9 % (0-6); HEMATOCRIT 36.5 % (36.0-47.0); HEMOGLOBIN 12.3 g/dL (12.0-15.5); LYMPHOCYTES % (AUTO) 28.2 % (13-45); MEAN CORPUSCULAR HEMOGLOBIN 32.7 pg (27.0-33.4); MEAN CORPUSCULAR HGB CONC 33.7 g/dL (32.0-36.0); MEAN CORPUSCULAR VOLUME 97 fl (80-97); MONOCYTES % (AUTO) 16.9 % (3-13); PLATELET COUNT 224 10^3/uL (150-450); RED CELL DISTRIBUTION WIDTH 13.1 % (11.5-14.0); SEGMENTED NEUTROPHILS % (AUTO) 53.6 % (42-78); TOTAL CELLS COUNTED % (AUTO) 100 %
[2018-12-20 03:29] LABS: ALBUMIN 3.8 g/dL (3.5-5.0); ALKALINE PHOSPHATASE 42 U/L (38-126); ANION GAP 9 (5-19); ASPARTATE AMINO TRANSFERASE 22 U/L (14-36); BILIRUBIN,TOTAL 0.6 mg/dL (0.2-1.3); BLOOD UREA NITROGEN 14 mg/dL (7-20); CALCIUM 9.6 mg/dL (8.4-10.2); CARBON DIOXIDE 28 mmol/L (22-30); CHLORIDE 103 mmol/L (98-107); CHOLESTEROL 148.98 mg/dL (0-200); GLUCOSE 98 mg/dL (75-110); POTASSIUM 4.1 mmol/L (3.6-5.0); TOTAL PROTEIN 6.3 g/dL (6.3-8.2); TRIGLYCERIDES 101 mg/dL (<150)
[2018-12-20 03:45] LABS: CREATINE KINASE MB 1.21 ng/mL (<4.55); TROPONIN I < 0.012 ng/mL
[2018-12-20 03:46] LABS: DIRECT LDL 79 mg/dL (<100)
--- NOTE | 2018-12-20 07:46 | Progress Note ---
Provider Note Provider Note: Patient seen during [facility] downtime. Consult is WRITTEN in the paper chart, per downtime policy. Please refer to consult for full recommendations. No surgical intervention necessary at this time. Will see PRN. [employer] with questions.
[2018-12-20] MEDS: ASPIRIN 81 MG TABLET, ENT COATED PO SCH (09:49)
[2018-12-20] MEDS: CLOPIDOGREL BISULFATE 75 MG TABLET PO SCH (09:49)
[2018-12-20] MEDS: ATENOLOL 50 MG TABLET PO SCH (09:49)
[2018-12-20] MEDS: CYANOCOBALAMIN (VITAMIN B-12) 1,000 MCG TABLET PO SCH (09:49)
[2018-12-20] MEDS: THIAMINE HCL 100 MG TABLET PO SCH (09:50)
[2018-12-20] MEDS: FAMOTIDINE 20 MG TABLET PO SCH (09:50)
[2018-12-20] MEDS: ENOXAPARIN SODIUM INJ 40 MG/0.4 ML DISP.SYRIN SUBCUT SCH (09:51)
[2018-12-20] MEDS: FLUTICASONE/VILANTEROL 100-25 MCG/DOSE IH SCH (09:52)
[2018-12-20] MEDS ORDERED: (PENDING PHARMACY ID) (Thiamine Hcl [Vitamin B-1] 50 MG) PO SCH (10:00)
[2018-12-20] MEDS ORDERED: CLOPIDOGREL BISULFATE 75 MG TABLET PO SCH (10:00)
--- NOTE | 2018-12-20 10:30 | RADIOLOGY REPORT (SQ) ---
EXAM DESCRIPTION: HARITHA SWALLOW COMPLETED DATE/TIME: 12/20/2018 9:35 am REASON FOR STUDY: dysphagia CVA COMPARISON: None. TECHNIQUE: Videofluoroscopic swallowing examination was performed in conjunction with speech patholo gy. Videofluoroscopic imaging was obtained and reviewed and these are the findings: RADIATION DOSE: 3 minutes 31 seconds of fluoroscopy was used. 1 images saved to PACS. LIMITATIONS: None FINDINGS: The patient was brought into the fluoro room and placed upright on a modified barium swall ow chair. The patient was then given multiple consistencies mixed with barium to swallow under live fluoroscopic video guidance. According to the Speech Pathologist there was no penetration or aspirat ion. Post swallow residual contrast within the vallecular and piriform sinuses. IMPRESSION: NO EVIDENCE OF PENETRATION OR ASPIRATION. PLEASE SEE SPEECH PATHOLOGIST REPORT FOR OTHER FINDINGS AND RECOMMENDATIONS. COMMENT: Quality ID 145: Final reports for procedures using fluoroscopy that document radiation exp osure indices, or exposure time and number of fluorographic images (if radiation exposure indices are not available) TECHNICAL DOCUMENTATION: JOB ID: [id number] [employer]- All Rights Reserved Reading location - IP/workstation name: [email or web address]
[2018-12-20 10:36] LABS: CREATINE KINASE MB 1.47 ng/mL (<4.55)
[2018-12-20 10:38] LABS: TROPONIN I < 0.012 ng/mL
--- NOTE | 2018-12-20 10:38 | RADIOLOGY REPORT (SQ) ---
EXAM DESCRIPTION: CTA HEAD COMPLETED DATE/TIME: 12/20/2018 9:10 am REASON FOR STUDY: cva COMPARISON: None. TECHNIQUE: Post IV contrast scanning, thin section axial imaging through the brain to evaluate the a rterial structures. Source and MIP images are saved and reviewed on PACS. Advanced 3D imaging as volume-rendering, MIPs, SSD performed? yes All CT scanners at this facility use dose modulation, iterative reconstruction, and/or weight based d osing when appropriate to reduce radiation dose to as low as reasonably achievable (ALARA). [facility]: Dose Right [facility]: CareDose [facility]: Dose Right [facility]: Teradose 4D [facility]: Nulogy CONTRAST TYPE AND DOSE: 57 mL Omnipaque 350 RENAL FUNCTION: BUN 17, creatinine 0.57 LIMITATIONS: None. FINDINGS: [place]: The anterior, middle, posterior cerebral arteries are all patent. No ev idence of aneurysm or focal stenosis. POSTERIOR CIRCULATION: The distal vertebral arteries are patent as is the basilar artery. No aneurysm . BRAIN: No gross enhancing lesions as visualized. The superior cerebral hemispheres are not included in the field of view. BONES: Intact as visualized. SINUSES: No fluid or mucosal thickening. OTHER: No other significant finding. IMPRESSION: NO CTA EVIDENCE OF STENOSIS OR ANEURYSM OF THE [place]. TECHNICAL DOCUMENTATION: JOB ID: [id number] Quality ID # [id number]: Final reports with documentation of one or more dose reduction techniques (e.g., Au tomated exposure control, adjustment of the mA and/or kV according to patient size, use of iterative reconstruction technique) 2010 [employer]- All Rights Reserved Reading location - IP/workstation name: [email or web address]
--- NOTE | 2018-12-20 10:41 | RADIOLOGY REPORT (SQ) ---
EXAM DESCRIPTION: CTA NECK COMPLETED DATE/TIME: 12/20/2018 9:10 am REASON FOR STUDY: cva COMPARISON: None. TECHNIQUE: Axial dynamic scanning technique with dynamic contrast enhancement through the extra-aircraft metalsmith nial carotid and vertebral arteries. Multiplanar reconstruction. 3-D MIPS and Volume-rendered imag es acquired at the workstation and saved to PACS. Images are reviewed in soft tissue, bone, lung w indows. All CT scanners at this facility use dose modulation, iterative reconstruction, and/or weight based d osing when appropriate to reduce radiation dose to as low as reasonably achievable (ALARA). [facility]: Dose Right [facility]: CareDose [facility]: Dose Right [facility]: Teradose 4D [facility]: [employer] CONTRAST TYPE AND DOSE: contrast/concentration: Isovue 350.00 mg/ml; Total Contrast Delivered: 57.2 ml; Total Saline Delivered: 40.0 ml RENAL FUNCTION: BUN 17, creatinine 0.57 LIMITATIONS: None. FINDINGS: AORTIC ARCH: Normal three-vessel origin. Bilateral subclavian arteries are patent. No d issection. There is calcified plaque at the great vessel origins. No high-grade stenosis. RIGHT CAROTIDS: Patent common, internal and external carotid arteries. There is calcified plaque at the carotid bulb and proximal right ICA. No high-grade stenosis. RIGHT VERTEBRAL: Patent. No dissection. LEFT CAROTIDS: Patent common, internal and external carotid arteries. Minimal calcified plaque. No dissection. No high-grade stenosis. LEFT VERTEBRAL: Patent. No dissection. OTHER: No other significant finding. OTHER: 3-D reconstructions confirm findings. IMPRESSION: Mild calcified plaque bilaterally right greater than left. No high-grade stenosis. COMMENT: Quality ID #[id number]: Measurements of distal internal carotid diameter were used as the denomina tor for stenosis measurement. TECHNICAL DOCUMENTATION: JOB ID: [id number] Quality ID # [id number]: Final reports with documentation of one or more dose reduction techniques (e.g., Au tomated exposure control, adjustment of the mA and/or kV according to patient size, use of iterative reconstruction technique) 2010 [employer]- All Rights Reserved Reading location - IP/workstation name: [email or web address]
--- NOTE | 2018-12-20 10:53 | ST Inp Modified Barium Swallow ---
Medical Diagnosis - Medical Diagnoses Medical Diagnosis Description & ICD-10 Code(s): CVA - ICD-10 Tx Diagnosis Coding (1) Dysphagia ICD-10 Code(s): R13.10 - DYSPHAGIA, UNSPECIFIED (2) Pharyngeal dysphagia ICD-10 Code(s): R13.13 - DYSPHAGIA, PHARYNGEAL PHASE ST [place] [facility] [place] Date: 12/20/18 Date of Onset: 11/07/18 - approximate onset - History -: Medical - per EMR: patient admitted 12/19 with right arm tingling and headache. Patient has history of CVA in , seen at [facility]. Patient also has a history of migraine, GERD, and asthma. Patient states that she has been on thickened liquids since her stroke in November, was unable to state if on honey or nectar thick. Patient also reports that she has had home health speech therapy for swallowing. Medications: Medications Reviewed Allergies: No known allergies - Subjective Current PO Diet: Regular, Thickened liquids Current Symptoms: other - history of dysphagia Pain: Patient reports, 0/5 - Objective Assessment: Upright, Left Lateral - Food Trials Food Trials Used: Thin liquids, Tibbie thick liquids, Pureed, Regular The Patient: Was Able to Self Feed - Assessment Labial Function: Within Normal Limits Lingual Function: Within Normal Limits Mandibular Function: Within Normal Limits Laryngeal Function: clear voicing - Pharyngeal Stage Initiation of Pharyngeal Stage: Normal Decreased Laryngeal Elevation: Yes - mild Reduced Velo-Pharyngeal Closure: no Reduced Pressure Generation: Yes - mild Reduced Tongue Base Retraction: No Pre-Swallowing Pooling in Valleculae: Mild Pre-Swallowing Pooling in Pyriforms: None Reduced Thyro-Hyiod Approximation: Yes - mild Reduced Epiglottic Excursion: No Reduced Pharyngeal Peristalsis: No Multiple Swallows With: Cleared w/ Liquid Assist Post Swallow Residuals in Valleculae: Moderate Post Swallow Residuals in Pyriforms: Mild - Impression/Summary Laryngeal Penetration: Flash Tracheal Aspiration: flash Productive Cough: Yes Effective Clearing: yes Effective Compensatory Strategies: throat clear & reswallow Patient Presents With: Pharyngeal stage dysph. - mild Risk of Aspiration: Mild Risk Due To: Patient presents with mild pharyngeal phase dysphagia, characterized by mildly reduced laryngeal elevation and pharyngeal constriction, which results in some flash penetration of thin liquids, and residue of solids. There was a possible flash aspiration event, which seemed to clear easily with spontaneous cough. - Recommendations Solid Diet Recommendations: Mechanical Soft, Chopped Meat Liquid Diet Recommendations: Thin Strict Aspitarion Precautions: Yes Dysphagia Therapy with GOODS LAYER: Yes Recommended Techniques: Fully Upright During Meal, Small Bites and Sips, Alternate Bites/Sips Other Recommendations: Recommend throat clear and re-swallow to ensure airway is staying clear. Recommend dysphagia therapy, including exercises for increased laryngeal elevation and closure and pharyngeal constriction. - Time Total Time: 30 Total Timed Minutes: 30
--- NOTE | 2018-12-20 11:49 | PDOC H&P ---
History of Present Illness Admission Date/PCP: 12/19/18 20:45 AADMA MARES MD Patient complains of: Tingling numbness and headache History of Present Illness: KANCHAN DASH is a 73 year old female t here today c/o intermittent headache since taking HCTZ ledger clerk started her on last Tuesday for leg swelling. Pt had stroke on 11/12 and was hospitalized, discharged home with sister and home health. Per friend, Melisa, who is with pt today, sister no longer stays with pt and home health nurse's last day was today. Pt alert and oriented but with intermittent confusion, forgetful. Pt's friend states EMS was called this morning d/t not being able to get in contact with pt, neighbor found pt's dog outside and pt's cane in driveway. Pt was found in the kitchen. Friend reports pt was not "acting herself". EMS was called, [facility], pt signed AMA paperwork to not go to hospital. Pt reports numbness/tingling to right arm this morning and neck pain with extension. 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 Patient was putting the aspirin and antiplatelet dual therapy for a month and the neurology suggested a single Plavix Patient was sent to the emergency department because of the patient with 3 days symptoms of the pain and patient is currently live by herself and the patient's head CT was found to be subacute infarct Patient's had a history of the migraine for a long time CT of the head and neck is negative for any acute finding Saw the patient is feeling better Patient is 2 days denied any headache no chest pain no short of breath Patient had a history of the complete heart block status post pacemaker currently see a Dr. Boyle Past Medical History Cardiac Medical History: Reports: Coronary Artery Disease, Hyperlipidema, Hypertension - meds x 7 years, Peripheral Vascular Disease, Other - Pacemaker Denies: Myocardial Infarction Cardiac History Note: Complete heart block status post pacemaker Pulmonary Medical History: Reports: Asthma, Bronchitis, Chronic Obstructive Pulmonary Disease (COPD) Denies: Pneumonia Neurological Medical History: Reports: Ischemic CVA, Migraine Denies: Seizures GI Medical History: Reports: Gastroesophageal Reflux Disease Musculoskeltal Medical History: Reports: Arthritis Psychiatric Medical History: Reports: Depression Hematology: Denies: Anemia Past Surgical History Past Surgical History: Reports: Appendectomy, Cardiac Catheterization, Pacemaker - Medtronic, pacemaker checklist on chart, Tonsillectomy Social History Information Source: Patient Lives with: Alone Smoking Status: Former Smoker Electronic Cigarette use?: No Frequency of Alcohol Use: Occasional Hx Recreational Drug Use: No Drugs: None Family History Family History: Reviewed & Not Pertinent Parental Family History Reviewed: Yes Children Family History Reviewed: Yes Sibling(s) Family History Reviewed.: Yes Medication/Allergy Home Medications: Atenolol [Tenormin 50 mg Tablet] 50 mg PO DAILY 10/10/18 Cholecalciferol (Vitamin D3) [Vitamin D3 1000 Unit Tablet] 1,000 unit PO DAILY 10/10/18 Cyanocobalamin (Vitamin B-12) [Vitamin B-12 1000 mcg Tablet] 1,000 mcg PO DAILY 10/10/18 Glucosamine/Methylsulfonylmeth [Glucosamine-MSM 500-400 mg Cap] 1 cap PO DAILY 10/10/18 Pravastatin Sodium [Pravachol] 20 mg PO DAILY 10/10/18 Thiamine HCl [Vitamin B-1] 50 mg PO DAILY 10/10/18 Ascorbic Acid [Vitamin C 500 mg Tablet] 500 mg PO DAILY 12/19/18 Budesonide/Formoterol Fumarate [Symbicort HFA 80-4.5 mcg Inhaler 6.9 gm] 2 puff IH Q12 12/19/18 Clopidogrel Bisulfate [Plavix 75 mg Tablet] 75 mg PO DAILY 12/19/18 Losartan Potassium [Cozaar 25 mg Tablet] 25 mg PO DAILY 12/19/18 [place]arson-3/Dha/Epa/Fish Oil [Fish Oil 1,000 mg Softgel] 1,000 mg PO DAILY 12/19/18 Vitamin E 400 unit PO DAILY 12/19/18 Allergies/Adverse Reactions: No Known Allergies Allergy (Verified 12/19/18 16:49) Review of Systems Constitutional: PRESENT: fatigue, weakness. ABSENT: chills, fever(s), headache(s), weight gain, weight loss Eyes: ABSENT: visual disturbances Ears: ABSENT: hearing changes Cardiovascular: ABSENT: chest pain, dyspnea on exertion, edema, orthropnea, palpitations Respiratory: ABSENT: cough, hemoptysis Gastrointestinal: ABSENT: abdominal pain, constipation, diarrhea, hematemesis, hematochezia, nausea, vomiting Genitourinary: ABSENT: dysuria, hematuria Musculoskeletal: ABSENT: joint swelling Integumentary: ABSENT: rash, wounds Neurological: PRESENT: numbness, tingling. ABSENT: abnormal gait, abnormal speech, confusion, dizziness, focal weakness, syncope Psychiatric: ABSENT: anxiety, depression, homidical ideation, suicidal ideation Endocrine: ABSENT: cold intolerance, heat intolerance, menstrual abnormalities, polydipsia, polyuria Hematologic/Lymphatic: ABSENT: easy bleeding, easy bruising, lymphadenopathy Physical Exam Vital Signs: Temp Pulse Resp BP Pulse Ox 98.4 F 73 18 118/57 L 97 12/20/18 08:15 12/20/18 10:58 12/20/18 08:15 12/20/18 10:58 12/20/18 10:58 Intake & Output 12/19/18 12/20/18 12/21/18 06:59 06:59 06:59 Weight 55.2 kg General appearance: PRESENT: no acute distress, well-developed, well-nourished Head exam: PRESENT: atraumatic, normocephalic Eye exam: PRESENT: conjunctiva pink, EOMI, PERRLA. ABSENT: scleral icterus Ear exam: PRESENT: normal external ear exam Mouth exam: PRESENT: moist, tongue midline Neck exam: PRESENT: full ROM. ABSENT: carotid bruit, JVD, lymphadenopathy, thyromegaly Respiratory exam: PRESENT: clear to auscultation shelley Cardiovascular exam: PRESENT: RRR. ABSENT: diastolic murmur, rubs, systolic murmur Pulses: PRESENT: normal dorsalis pedis pul, +2 pedal pulses bilateral Vascular exam: PRESENT: normal capillary refill GI/Abdominal exam: PRESENT: normal bowel sounds, soft. ABSENT: distended, guarding, mass, organolmegaly, rebound, tenderness Rectal exam: PRESENT: deferred Extremities exam: ABSENT: pedal edema Additional comments: On the right lower extremity there is chronic wound is present Musculoskeletal exam: PRESENT: ambulatory Neurological exam: PRESENT: alert, awake, oriented to person, oriented to place, oriented to time, oriented to situation, CN II-XII grossly intact. ABSENT: motor sensory deficit Psychiatric exam: PRESENT: appropriate affect, normal mood. ABSENT: homicidal ideation, suicidal ideation Skin exam: PRESENT: dry, intact, warm. ABSENT: cyanosis, rash Results Laboratory Results: 12/20/18 03:04 12/20/18 03:04 12/19/18 12/19/18 12/19/18 17:35 17:35 22:40 WBC 7.7 RBC 3.97 Hgb 12.9 Hct 38.8 MCV 98 H MCH 32.6 MCHC 33.4 RDW 13.4 Plt Count 255 Seg Neutrophils % 58.9 Sodium 137.9 Potassium 3.5 L Chloride 97 L Carbon Dioxide 29 Anion Gap 12 BUN 17 Creatinine 0.57 Est GFR ( Amer) > 60 Glucose 97 Calcium 10.3 H Total Bilirubin 0.4 AST 27 Alkaline Phosphatase 50 Total Protein 7.4 Albumin 4.5 Triglycerides Cholesterol LDL Cholesterol Direct VLDL Cholesterol HDL Cholesterol Urine Color YELLOW Urine Appearance SLIGHTLY-CLOUDY Urine pH 5.0 Ur Specific [place] 1.031 Urine Protein NEGATIVE Urine Glucose (UA) NEGATIVE Urine Ketones 20 H Urine Blood NEGATIVE Urine RBC (Auto) 3 12/20/18 12/20/18 03:04 03:04 WBC 7.3 RBC 3.76 Hgb 12.3 Hct 36.5 MCV 97 MCH 32.7 MCHC 33.7 RDW 13.1 Plt Count 224 Seg Neutrophils % 53.6 Sodium 139.8 Potassium 4.1 Chloride 103 Carbon Dioxide 28 Anion Gap 9 BUN 14 Creatinine 0.51 L Est GFR ( Amer) > 60 Glucose 98 Calcium 9.6 Total Bilirubin 0.6 AST 22 Alkaline Phosphatase 42 Total Protein 6.3 Albumin 3.8 Triglycerides 101 Cholesterol 148.98 LDL Cholesterol Direct 79 VLDL Cholesterol 20.0 HDL Cholesterol 55 Urine Color Urine Appearance Urine pH Ur Specific [place] Urine Protein Urine Glucose (UA) Urine Ketones Urine Blood Urine RBC (Auto) 12/19/18 12/19/18 12/19/18 17:35 21:08 21:08 Creatine Kinase 41 CK-MB (CK-2) 1.22 Troponin I < 0.012 < 0.012 12/20/18 12/20/18 12/20/18 03:04 03:04 09:32 Creatine Kinase 38 48 CK-MB (CK-2) 1.21 Troponin I < 0.012 12/20/18 09:32 Creatine Kinase CK-MB (CK-2) 1.47 Troponin I < 0.012 Impressions: Chest X-Ray 12/19/18 16:47 IMPRESSION: 1.2 cm nodular density overlying the right upper lobe. No consolidation or pleural effusion. Head CT 12/19/18 16:47 IMPRESSION: Small area of cortical-subcortical hypodensity in the posterior l eft parietal lobe, possible subacute infarct. No hemorrhage. No midline shift. EVIDENCE OF ACUTE STROKE: YES. LEFT MCA Modified Barium Swallow 12/20/18 00:00 IMPRESSION: NO EVIDENCE OF PENETRATION OR ASPIRATION. PLEASE SEE SPEECH PATHOLOGIST REPORT FOR OTHER FINDINGS AND RECOMMENDATIONS. Head CTA 12/20/18 09:00 IMPRESSION: NO CTA EVIDENCE OF STENOSIS OR ANEURYSM OF THE [place]. Neck CTA 12/20/18 09:00 IMPRESSION: Mild calcified plaque bilaterally right greater than left. No high-grade stenosis. 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 WALKER for further evaluate (4) Chronic arthritis Is this a current diagnosis for this admission?: Yes (5) Hyperlipidemia Qualifiers: Hyperlipidemia type: unspecified Qualified Code(s): E78.5 - Hyperlipidemia, unspecified Is this a current diagnosis for this admission?: Yes Plan: Currently on a high-dose statin (6) Hypertension Qualifiers: Hypertension type: essential hypertension Qualified Code(s): I10 - Essential (primary) hypertension Is this a current diagnosis for this admission?: Yes Plan: Currently all stable (7) Migraine headache Qualifiers: Intractability: intractable Is this a current diagnosis for this admission?: Yes Plan: PRN pain medications (8) Peripheral vascular disease Is this a current diagnosis for this admission?: Yes (9) Chronic wound of extremity Is this a current diagnosis for this admission?: Yes Plan: Due to the recent stroke in the fall on the last month we will consult the surgery to further evaluate it due to underlying peripheral vascular disease - Time Time Spent: 30 to 50 Minutes Medications reviewed and adjusted accordingly: Yes Anticipated discharge: SNF Within: Other - Inpatient Certification Based on my medical assessment, after consideration of the patient's comorbidities, presenting symptoms, or acuity I expect that the services needed warrant INPATIENT care.: Yes I certify that my determination is in accordance with my understanding of Medicare's requirements for reasonable and necessary INPATIENT services [42 CFR 412.3e].: Yes Medical Necessity: Significant Comorbidiites Make Outpatient Treatment Too Risky, Need Close Monitoring Due to Risk of Patient Decompensation Post Hospital Care: D/C [facility] Documentation - Plan Summary Plan Summary: Admit the patient in IMCU discussed with the caregiver about the patient's conditions patients get a benefit to leaving the rehab facility for at least a month
[2018-12-20] MEDS ORDERED: LORAZEPAM INJ 2 MG/1 ML VIAL IV PRN (18:40)
[2018-12-21] MEDS: FAMOTIDINE 20 MG TABLET PO SCH ×3 (01:25→21:58)
[2018-12-21] MEDS: ATORVASTATIN CALCIUM 80 MG TABLET PO SCH ×2 (01:25→21:58)
[2018-12-21] MEDS ORDERED: LORAZEPAM 0.5 MG TABLET PO PRN (07:43)
--- NOTE | 2018-12-21 13:38 | PDOC PROGRESS REPORT ---
Subjective Progress Note for:: 12/21/18 Subjective:: Patient is currently doing fair Patient is a wandering in the hallway yesterday and agitated and required Ativan When I saw this patient's feeling better and alert awake And oriented x3 Any chest pain denied any shortness of breath Reason For Visit: STROKE Physical Exam Vital Signs: Temp Pulse Resp BP Pulse Ox 97.7 F 70 17 149/115 H 97 12/21/18 07:55 12/21/18 07:55 12/21/18 07:55 12/21/18 07:55 12/21/18 07:55 Intake & Output 12/20/18 12/21/18 12/22/18 06:59 06:59 06:59 Intake Total 800 240 Output Total 0 Balance 800 240 Weight 55.2 kg 57.3 kg General appearance: PRESENT: no acute distress, well-developed, well-nourished Head exam: PRESENT: atraumatic, normocephalic Eye exam: PRESENT: conjunctiva pink, EOMI, PERRLA. ABSENT: scleral icterus Ear exam: PRESENT: normal external ear exam Mouth exam: PRESENT: moist, tongue midline Neck exam: PRESENT: full ROM. ABSENT: carotid bruit, JVD, lymphadenopathy, thyromegaly Respiratory exam: PRESENT: clear to auscultation shelley Cardiovascular exam: PRESENT: RRR. ABSENT: diastolic murmur, rubs, systolic murmur Pulses: PRESENT: normal dorsalis pedis pul, +2 pedal pulses bilateral Vascular exam: PRESENT: normal capillary refill GI/Abdominal exam: PRESENT: normal bowel sounds, soft. ABSENT: distended, guarding, mass, organolmegaly, rebound, tenderness Rectal exam: PRESENT: deferred Musculoskeletal exam: PRESENT: ambulatory Neurological exam: PRESENT: alert, awake, oriented to person, oriented to place, oriented to time, oriented to situation, CN II-XII grossly intact. ABSENT: motor sensory deficit Psychiatric exam: PRESENT: appropriate affect, normal mood. ABSENT: homicidal ideation, suicidal ideation Skin exam: PRESENT: dry, intact, warm. ABSENT: cyanosis, rash Results Laboratory Results: 12/20/18 03:04 12/20/18 03:04 12/19/18 22:40 Clean Catch Midstream Urine Culture - Final Yeast, Not Leti Albicans Mixed Urogenital Chandrika 11/01/2512/19/18 12/19/18 17:35 21:08 21:08 Creatine Kinase 41 CK-MB (CK-2) 1.22 Troponin I < 0.012 < 0.012 12/20/18 12/20/18 12/20/18 03:04 03:04 09:32 Creatine Kinase 38 48 CK-MB (CK-2) 1.21 Troponin I < 0.012 12/20/18 09:32 Creatine Kinase CK-MB (CK-2) 1.47 Troponin I < 0.012 Impressions: Chest X-Ray 12/19/18 16:47 IMPRESSION: 1.2 cm nodular density overlying the right upper lobe. No consolidation or pleural effusion. Head CT 12/19/18 16:47 IMPRESSION: Small area of cortical-subcortical hypodensity in the posterior left parietal lobe, possible subacute infarct. No hemorrhage. No midline shift. EVIDENCE OF ACUTE STROKE: YES. LEFT MCA Modified Barium Swallow 12/20/18 00:00 IMPRESSION: NO EVIDENCE OF PENETRATION OR ASPIRATION. PLEASE SEE SPEECH PATHOLOGIST REPORT FOR OTHER FINDINGS AND RECOMMENDATIONS. Head CTA 12/20/18 09:00 IMPRESSION: NO CTA EVIDENCE OF STENOSIS OR ANEURYSM OF THE [place]. Neck CTA 12/20/18 09:00 IMPRESSION: Mild calcified plaque bilaterally right greater than left. No high-grade stenosis. 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 fib in the pacemaker Integration (4) Chronic arthritis Is this a current diagnosis for this admission?: Yes (5) Hyperlipidemia Qualifiers: Hyperlipidemia type: unspecified Qualified Code(s): E78.5 - Hyperlipidemia, unspecified Is this a current diagnosis for this admission?: Yes Plan: Currently on a high-dose statin (6) Hypertension Qualifiers: Hypertension type: essential hypertension Qualified Code(s): I10 - Essential (primary) hypertension Is this a current diagnosis for this admission?: Yes Plan: Currently all stable (7) Migraine headache Qualifiers: Intractability: intractable Is this a current diagnosis for this admission?: Yes Plan: PRN pain medications (8) Peripheral vascular disease Is this a current diagnosis for this admission?: Yes (9) Chronic wound of extremity Is this a current diagnosis for this admission?: Yes Plan: Due to the recent stroke in the fall on the last month we will consult the surgery to further evaluate it due to underlying peripheral vascular disease - Time Time Spent with patient: 25-34 minutes Level of Care: IMCU Medications reviewed and adjusted accordingly: Yes Anticipated discharge: SNF Within: Other - Plan Summary Plan Summary: I think patient start developing some current upper dementia with underlying stroke with the history of the alcoholism in the past patient's claimShe does not drink any heavy may be a 2 or 3 times a week
[2018-12-21] MEDS: FLUTICASONE/VILANTEROL 100-25 MCG/DOSE IH SCH (16:10)
[2018-12-21] MEDS: ASPIRIN 81 MG TABLET, ENT COATED PO SCH (16:11)
[2018-12-21] MEDS: ENOXAPARIN SODIUM INJ 40 MG/0.4 ML DISP.SYRIN SUBCUT SCH (16:12)
[2018-12-21] MEDS: CLOPIDOGREL BISULFATE 75 MG TABLET PO SCH (16:13)
[2018-12-21] MEDS: ATENOLOL 50 MG TABLET PO SCH (16:16)
[2018-12-21] MEDS: THIAMINE HCL 100 MG TABLET PO SCH (16:17)
[2018-12-21] MEDS: CYANOCOBALAMIN (VITAMIN B-12) 1,000 MCG TABLET PO SCH (16:18)
[2018-12-22 05:18] LABS: ABSOLUTE EOSINOPHILS # (AUTO) 0.1 10^3/uL (0.0-0.6); ABSOLUTE LYMPHOCYTES (AUTO) 1.6 10^3/uL (0.5-4.7); ABSOLUTE MONOCYTES (AUTO) 1.1 10^3/uL (0.1-1.4); ABSOLUTE NEUT (AUTO) 2.9 10^3/uL (1.7-8.2); BASOPHILS % (AUTO) 0.5 % (0-2); EOSINOPHILS % (AUTO) 1.9 % (0-6); HEMATOCRIT 37.7 % (36.0-47.0); HEMOGLOBIN 12.6 g/dL (12.0-15.5); LYMPHOCYTES % (AUTO) 27.6 % (13-45); MEAN CORPUSCULAR HEMOGLOBIN 32.6 pg (27.0-33.4); MEAN CORPUSCULAR HGB CONC 33.5 g/dL (32.0-36.0); MEAN CORPUSCULAR VOLUME 97 fl (80-97); MONOCYTES % (AUTO) 18.9 % (3-13); PLATELET COUNT 214 10^3/uL (150-450); RED BLOOD COUNT 3.87 10^6/uL (3.72-5.28); SEGMENTED NEUTROPHILS % (AUTO) 51.1 % (42-78); TOTAL CELLS COUNTED % (AUTO) 100 %; WHITE BLOOD COUNT 5.6 10^3/uL (4.0-10.5)
[2018-12-22 05:37] LABS: ANION GAP 10 (5-19); BLOOD UREA NITROGEN 12 mg/dL (7-20); CALCIUM 9.7 mg/dL (8.4-10.2); CARBON DIOXIDE 26 mmol/L (22-30); CHLORIDE 105 mmol/L (98-107); GLUCOSE 112 mg/dL (75-110); POTASSIUM 3.9 mmol/L (3.6-5.0)
--- NOTE | 2018-12-22 09:08 | PDOC TRANSFER SUMMARY ---
Impression - Admit/DC Date/PCP Admission Date/Primary Care Provider: 12/19/18 20:45 ADAMA MARES MD Discharge Date: 12/22/18 - Discharge Diagnosis (1) Stroke Is this a current diagnosis for this admission?: Yes (2) Dysphagia Is this a current diagnosis for this admission?: Yes (3) Cardiac pacemaker Is this a current diagnosis for this admission?: Yes (4) Chronic arthritis Is this a current diagnosis for this admission?: Yes (5) Hyperlipidemia Is this a current diagnosis for this admission?: Yes (6) Hypertension Is this a current diagnosis for this admission?: Yes (7) Migraine headache Is this a current diagnosis for this admission?: Yes (8) Peripheral vascular disease Is this a current diagnosis for this admission?: Yes (9) Chronic wound of extremity Is this a current diagnosis for this admission?: Yes - Additional Information Discharge Diet: Cardiac Discharge Activity: Activity As Tolerated Referrals: SUSU BULL PA [PHYSICIAN FOOD TRUCK CATERER] - 12/29/18 11:30 am Prescriptions: Atorvastatin Calcium [Lipitor 80 mg Tablet] 80 mg PO QHS #30 tablet Home Medications: Atenolol [Tenormin 50 mg Tablet] 50 mg PO DAILY 10/10/18 Cholecalciferol (Vitamin D3) [Vitamin D3 1000 Unit Tablet] 1,000 unit PO DAILY 10/10/18 Cyanocobalamin (Vitamin B-12) [Vitamin B-12 1000 mcg Tablet] 1,000 mcg PO DAILY 10/10/18 Glucosamine/Methylsulfonylmeth [Glucosamine-MSM 500-400 mg Cap] 1 cap PO DAILY 10/10/18 Thiamine HCl [Vitamin B-1] 50 mg PO DAILY 10/10/18 Ascorbic Acid [Vitamin C 500 mg Tablet] 500 mg PO DAILY 12/19/18 Budesonide/Formoterol Fumarate [Symbicort HFA 80-4.5 mcg Inhaler 6.9 gm] 2 puff IH Q12 12/19/18 Clopidogrel Bisulfate [Plavix 75 mg Tablet] 75 mg PO DAILY 12/19/18 Losartan Potassium [Cozaar 25 mg Tablet] 25 mg PO DAILY 12/19/18 Addison-3/Dha/Epa/Fish Oil [Fish Oil 1,000 mg Softgel] 1,000 mg PO DAILY 12/19/18 Vitamin E 400 unit PO DAILY 12/19/18 Atorvastatin Calcium [Lipitor 80 mg Tablet] 80 mg PO QHS #30 tablet 12/22/18 History of Present Illiness History of Present Illness: KANCHAN DASH is a 73 year old female t here today c/o intermittent headache since taking HCTZ director of cardiac rehabilitation started her on last Tuesday for leg swelling. Pt had stroke on 11/12 and was hospitalized, discharged home with sister and home health. Per friend, Melisa, who is with pt today, sister no longer stays with pt and home health nurse's last day was today. Pt alert and oriented but with intermittent confusion, forgetful. Pt's friend states EMS was called this morning d/t not being able to get in contact with pt, neighbor found pt's dog outside and pt's cane in driveway. Pt was found in the kitchen. Friend reports pt was not "acting herself". EMS was called, VSS, pt sig marques AMA paperwork to not go to hospital. Pt reports numbness/tingling to right arm this morning and neck pain with extension. Patient is recently admitting in the [facility] for the left MCA MILL REPRESENTATIVE stroke Patient was putting the aspirin and antiplatelet dual therapy for a month and the neurology suggested a single Plavix Patient was sent to the emergency department because of the patient with 3 days symptoms of the pain and patient is currently live by herself and the patient's head CT was found to be subacute infarct Patient's had a history of the migraine for a long time CT of the head and neck is negative for any acute finding Saw the patient is feeling better Patient is 2 days denied any headache no chest pain no short of breath Patient had a history of the complete heart block status post pacemaker currently see a Dr. Boyle Hospital Course Hospital Course: This is a 73-year-old female with a recent history of the MCA MILL REPRESENTATIVE stroke went to the [facility] discharge came home patient was struggling to stay home because of the ongoing wound and started developing some memory issues came to my office was feeling tingling numbness and headache Patient's at this point is referred to the emergency department underwent for the CT of the head with so some questionable MCA stroke with a subacute which are hard to tell with her old stroke versus new strokes Patient is also have a pacemaker unable to get the MRI pacemaker interrogated did not see any A. fib and a consult Dr. Boyle director of cardiac rehabilitation who saw the patient's regularly outpatient suggest no need for SUN Patient is already seen the neurologist in [facility] suggest aspirin and Plavix for a month and switch to the Plavix later on Patient's have a CT angiogram of the head and neck was done with no acute finding Patient's most continues aspirin Plavix and high-dose statin Patient has also wound with seen by the surgery suggest a Silvadene dressing Patient's son notices him wandering in the hallwayBut last 24 hours patient was doing 100% better according to the nursing staff Patient's used to drink alcohol Patient is already on thiamine multivitamins Patient is probably underlying vascular dementia's but currently alert awake oriented I believe patients get a benefit to go to the short-term rehab because patient still does not have any family member close to live Patient's continues to monitor follow outpatients neurology Try to contact with the sisters unable to answer on the discharge nurse is going to try again Patient follow outpatients cardiology Patient needs to follow outpatients neurology Patient's continues physical therapy continues wound care Speech therapy and modified barium swallow suggest mechanical chopped diet Speech therapy exercise See the speech therapy recommendation and modified barium swallow recommendations Patient otherwise alert awake oriented x3 patient's walk with the physical therapy without any problems surgeries already addressed wound in PT OT already in the speech therapy already addressed Physical Exam Vital Signs: Temp Pulse Resp BP Pulse Ox 98.1 F 83 18 151/78 H 93 12/22/18 03:20 12/22/18 07:00 12/22/18 03:20 12/22/18 03:20 12/22/18 03:20 Intake & Output 12/21/18 12/22/18 12/23/18 06:59 06:59 06:59 Intake Total 800 620 Output Total 0 Balance 800 620 Weight 57.3 kg 57.8 kg General appearance: PRESENT: no acute distress, well-developed, well-nourished Head exam: PRESENT: atraumatic, normocephalic Eye exam: PRESENT: conjunctiva pink, EOMI, PERRLA. ABSENT: scleral icterus Ear exam: PRESENT: normal external ear exam Mouth exam: PRESENT: moist, tongue midline Neck exam: ABSENT: carotid bruit, JVD, lymphadenopathy, thyromegaly Respiratory exam: PRESENT: clear to auscultation shelley. ABSENT: rales, rhonchi, wheezes Cardiovascular exam: PRESENT: RRR. ABSENT: diastolic murmur, rubs, systolic murmur Pulses: PRESENT: normal dorsalis pedis pul Vascular exam: PRESENT: normal capillary refill GI/Abdominal exam: PRESENT: normal bowel sounds, soft. ABSENT: distended, guarding, mass, organolmegaly, rebound, tenderness Rectal exam: PRESENT: deferred Extremities exam: PRESENT: full ROM. ABSENT: calf tenderness, clubbing, pedal edema Neurological exam: PRESENT: alert, awake, oriented to person, oriented to place, oriented to time, oriented to situation, CN II-XII grossly intact. ABSENT: motor sensory deficit Psychiatric exam: PRESENT: appropriate affect, normal mood. ABSENT: homicidal ideation, suicidal ideation Skin exam: PRESENT: dry, intact, warm. ABSENT: cyanosis, rash Additional comments: Right lower extremities wound is of dressings intact Results Laboratory Results: WBC 5.6 10^3/uL (4.0-10.5) 12/22/18 04:38 RBC 3.87 10^6/uL (3.72-5.28) 12/22/18 04:38 Hgb 12.6 g/dL (12.0-15.5) 12/22/18 04:38 Hct 37.7 % (36.0-47.0) 12/22/18 04:38 MCV 97 fl (80-97) 12/22/18 04:38 MCH 32.6 pg (27.0-33.4) 12/22/18 04:38 MCHC 33.5 g/dL (32.0-36.0) 12/22/18 04:38 RDW 13.0 % (11.5-14.0) 12/22/18 04:38 Plt Count 214 10^3/uL (150-450) 12/22/18 04:38 Lymph % (Auto) 27.6 % (13-45) 12/22/18 04:38 [place] % (Auto) 18.9 % (3-13) H 12/22/18 04:38 Eos % (Auto) 1.9 % (0-6) 12/22/18 04:38 Baso % (Auto) 0.5 % (0-2) 12/22/18 04:38 Absolute Neuts (auto) 2.9 10^3/uL (1.7-8.2) 12/22/18 04:38 Absolute Lymphs (auto) 1.6 10^3/uL (0.5-4.7) 12/22/18 04:38 Absolute Monos (auto) 1.1 10^3/uL (0.1-1.4) 12/22/18 04:38 Absolute Eos (auto) 0.1 10^3/uL (0.0-0.6) 12/22/18 04:38 Absolute Basos (auto) 0.0 10^3/uL (0.0-0.2) 12/22/18 04:38 Seg Neutrophils % 51.1 % (42-78) 12/22/18 04:38 PT 13.6 SEC (11.4-15.4) 12/19/18 17:35 INR 1.04 12/19/18 17:35 APTT 30.1 SEC (23.5-35.8) 12/19/18 17:35 Sodium 141.1 mmol/L (137-145) 12/22/18 04:38 Potassium 3.9 mmol/L (3.6-5.0) 12/22/18 04:38 Chloride 105 mmol/L (98-107) 12/22/18 04:38 Carbon Dioxide 26 mmol/L (22-30) 12/22/18 04:38 Anion Gap 10 (5-19) 12/22/18 04:38 BUN 12 mg/dL (7-20) 12/22/18 04:38 Creatinine 0.58 mg/dL (0.52-1.25) 12/22/18 04:38 Est GFR ( Amer) > 60 (>60) 12/22/18 04:38 Est GFR (MDRD) Non-Af > 60 (>60) 12/22/18 04:38 Glucose 112 mg/dL (75-110) H 12/22/18 04:38 Calcium 9.7 mg/dL (8.4-10.2) 12/22/18 04:38 Total Bilirubin 0.6 mg/dL (0.2-1.3) 12/20/18 03:04 Direct Bilirubin 0.0 mg/dL (0.0-0.4) 12/20/18 03:04 Neonat Total Bilirubin Not Reportable 12/20/18 03:04 Neonat Direct Bilirubin Not Reportable 12/20/18 03:04 Neonat Indirect Bili Not Reportable 12/20/18 03:04 AST 22 U/L (14-36) 12/20/18 03:04 ALT 16 U/L (<35) 12/20/18 03:04 Alkaline Phosphatase 42 U/L (38-126) 12/20/18 03:04 Creatine Kinase 48 U/L (30-135) 12/20/18 09:32 CK-MB (CK-2) 1.47 ng/mL (<4.55) 12/20/18 09:32 Troponin I < 0.012 ng/mL 12/20/18 09:32 Total Protein 6.3 g/dL (6.3-8.2) 12/20/18 03:04 Albumin 3.8 g/dL (3.5-5.0) 12/20/18 03:04 Triglycerides 101 mg/dL (<150) 12/20/18 03:04 Cholesterol 148.98 mg/dL (0-200) 12/20/18 03:04 LDL Cholesterol Direct 79 mg/dL (<100) 12/20/18 03:04 VLDL Cholesterol 20.0 mg/dL (10-31) 12/20/18 03:04 HDL Cholesterol 55 mg/dL (>40) 12/20/18 03:04 Urine Color YELLOW 12/19/18 22:40 Urine Appearance SLIGHTLY-CLOUDY 12/19/18 22:40 Urine pH 5.0 (5.0-9.0) 12/19/18 22:40 Ur Specific [place] 1.031 12/19/18 22:40 Urine Protein NEGATIVE mg/dL (NEGATIVE) 12/19/18 22:40 Urine Glucose (UA) NEGATIVE mg/dL (NEGATIVE) 12/19/18 22:40 Urine Ketones 20 mg/dL (NEGATIVE) H 12/19/18 22:40 Urine Blood NEGATIVE (NEGATIVE) 12/19/18 22:40 Urine Nitrite (Reflex) NEGATIVE (NEGATIVE) 12/19/18 22:40 Urine Bilirubin NEGATIVE (NEGATIVE) 12/19/18 22:40 Urine Urobilinogen NEGATIVE mg/dL (<2.0) 12/19/18 22:40 Leukocyte Esterase Rfl SMALL (NEGATIVE) H 12/19/18 22:40 Urine RBC (Auto) 3 /HPF 11/12/19 22:40 U Hyaline Cast (Auto) 1 /LPF 12/19/18 22:40 Urine WBC (Reflex) 23 /HPF 12/19/18 22:40 Squamous Epi Cells Auto 3 /HPF 12/19/18 22:40 Urine Mucus (Auto) FEW /LPF 12/19/18 22:40 Urine Ascorbic Acid 40 (NEGATIVE) H 12/19/18 22:40 12/19/18 12/19/18 12/20/18 17:35 21:08 03:04 CK-MB (CK-2) 1.22 1.21 Troponin I < 0.012 < 0.012 < 0.012 12/20/18 09:32 CK-MB (CK-2) 1.47 Troponin I < 0.012 Impressions: Chest X-Ray 12/19/18 16:47 IMPRESSION: 1.2 cm nodular density overlying the right upper lobe. No consolidation or pleural effusion. Head CT 12/19/18 16:47 IMPRESSION: Small area of cortical-subcortical hypodensity in the posterior left parietal lobe, possible subacute infarct. No hemorrhage. No midline shift. EVIDENCE OF ACUTE STROKE: YES. LEFT MCA Modified Barium Swallow 12/20/18 00:00 IMPRESSION: NO EVIDENCE OF PENETRATION OR ASPIRATION. PLEASE SEE SPEECH PATHOLOGIST REPORT FOR OTHER FINDINGS AND RECOMMENDATIONS. Head CTA 12/20/18 09:00 IMPRESSION: NO CTA EVIDENCE OF STENOSIS OR ANEURYSM OF THE [place]. Neck CTA 12/20/18 09:00 IMPRESSION: Mild calcified plaque bilaterally right greater than left. No high-grade stenosis. Plan Time Spent: Greater than 30 Minutes - Discharge to short-term rehab Stroke Is this a Stroke Patient?: Yes Stroke Pt being discharged on Anti-thrombolytic therapy?: Yes Stroke Pt being discharged on Anti-coagulation therapy?: No Reason(s) for not prescribing Anti-coagulation therapy:: Not indicated Stroke Pt being discharged on Statins?: Yes Acute Heart Failure - Is this a Heart Failure Patient?: No
[2018-12-22] MEDS: FLUTICASONE/VILANTEROL 100-25 MCG/DOSE IH SCH (11:07)
[2018-12-22] MEDS: ENOXAPARIN SODIUM INJ 40 MG/0.4 ML DISP.SYRIN SUBCUT SCH (11:08)
[2018-12-22] MEDS: CLOPIDOGREL BISULFATE 75 MG TABLET PO SCH (11:11)
[2018-12-22] MEDS: CYANOCOBALAMIN (VITAMIN B-12) 1,000 MCG TABLET PO SCH (11:12)
[2018-12-22] MEDS: FAMOTIDINE 20 MG TABLET PO SCH ×2 (11:12→21:20)
[2018-12-22] MEDS: ATENOLOL 50 MG TABLET PO SCH (11:13)
[2018-12-22] MEDS: ASPIRIN 81 MG TABLET, ENT COATED PO SCH (11:14)
[2018-12-22] MEDS: THIAMINE HCL 100 MG TABLET PO SCH (11:15)
--- NOTE | 2018-12-22 17:03 | Progress Note ---
Provider Note Provider Note: Patient find that he change her mind to go to the rehab Patient still complains of some dizziness earlier but not anymore Patient is denied any headache Patient's all neuro exam is normal patient is denied any visual problems No chest pain no short of breath Patient's physical exam is completely normal I I believe patient still get a benefit to go to the rehab Will get the CT of the head to make sure there is no other any CVA going on Signout with the Dr. Larios
--- NOTE | 2018-12-22 17:50 | RADIOLOGY REPORT (SQ) ---
EXAM DESCRIPTION: CT HEAD WITHOUT COMPLETED DATE/TIME: 12/22/2018 5:27 pm REASON FOR STUDY: dizziness COMPARISON: CT angio brain 12/20/2018, 10/10/2018 CT brain 12/19/2018, 10/10/2018, 01/28/2011, 08/20/2006 TECHNIQUE: Axial images acquired through the brain without intravenous contrast. Images reviewed wi th bone, brain and subdural windows. Additional sagittal and coronal reconstructions were generated. Images stored on PACS. All CT scanners at this facility use dose modulation, iterative reconstruction, and/or weight based d osing when appropriate to reduce radiation dose to as low as reasonably achievable (ALARA). [facility]: Dose Right [facility]: CareDose [facility]: Dose Right [facility]: Teradose 4D [facility]: [employer] RADIATION DOSE: CT Rad equipment meets quality standard of care and radiation dose reduction techniq ues were employed. CTDIvol: 53.2 mGy. DLP: 991 mGy-cm. mGy. LIMITATIONS: None. FINDINGS: VENTRICLES: Normal size and contour. CEREBRUM: No masses. No hemorrhage. No midline shift. No evidence for acute infarction. Normal gra y/white matter differentiation. No areas of low density in the white matter. CEREBELLUM: No masses. No hemorrhage. No alteration of density. No evidence for acute infarction. EXTRAAXIAL SPACES: No fluid collections. No masses. ORBITS AND GLOBE: No intra- or extraconal masses. Normal contour of globe without masses. CALVARIUM: No fracture. PARANASAL SINUSES: No fluid or mucosal thickening. SOFT TISSUES: No mass or hematoma. OTHER: No other significant finding. IMPRESSION: No acute findings. EVIDENCE OF ACUTE STROKE: NO. COMMENT: Quality ID # [id number]: Final reports with documentation of one or more dose reduction techniques (e.g., Automated exposure control, adjustment of the mA and/or kV according to patient size, use of iterative reconstruction technique) TECHNICAL DOCUMENTATION: JOB ID: [id number] [employer]- All Rights Reserved Reading location - IP/workstation name: [email or web address]
[2018-12-22] MEDS: ATORVASTATIN CALCIUM 80 MG TABLET PO SCH (21:20)
[2018-12-23 05:04] LABS: ABSOLUTE EOSINOPHILS # (AUTO) 0.1 10^3/uL (0.0-0.6); ABSOLUTE LYMPHOCYTES (AUTO) 1.3 10^3/uL (0.5-4.7); ABSOLUTE MONOCYTES (AUTO) 0.8 10^3/uL (0.1-1.4); ABSOLUTE NEUT (AUTO) 3.1 10^3/uL (1.7-8.2); BASOPHILS % (AUTO) 0.5 % (0-2); EOSINOPHILS % (AUTO) 1.5 % (0-6); HEMATOCRIT 37.7 % (36.0-47.0); HEMOGLOBIN 12.8 g/dL (12.0-15.5); LYMPHOCYTES % (AUTO) 24.5 % (13-45); MEAN CORPUSCULAR HEMOGLOBIN 32.8 pg (27.0-33.4); MEAN CORPUSCULAR HGB CONC 33.8 g/dL (32.0-36.0); MEAN CORPUSCULAR VOLUME 97 fl (80-97); MONOCYTES % (AUTO) 15.3 % (3-13); PLATELET COUNT 221 10^3/uL (150-450); RED BLOOD COUNT 3.89 10^6/uL (3.72-5.28); SEGMENTED NEUTROPHILS % (AUTO) 58.2 % (42-78); TOTAL CELLS COUNTED % (AUTO) 100 %; WHITE BLOOD COUNT 5.4 10^3/uL (4.0-10.5)
[2018-12-23 05:19] LABS: ANION GAP 7 (5-19); BLOOD UREA NITROGEN 12 mg/dL (7-20); CALCIUM 9.9 mg/dL (8.4-10.2); CARBON DIOXIDE 29 mmol/L (22-30); CHLORIDE 103 mmol/L (98-107); GLUCOSE 120 mg/dL (75-110); POTASSIUM 3.9 mmol/L (3.6-5.0)
[2018-12-23] MEDS: THIAMINE HCL 100 MG TABLET PO SCH (09:37)
[2018-12-23] MEDS: ATENOLOL 50 MG TABLET PO SCH (09:40)
[2018-12-23] MEDS: CLOPIDOGREL BISULFATE 75 MG TABLET PO SCH (09:43)
[2018-12-23] MEDS: ASPIRIN 81 MG TABLET, ENT COATED PO SCH (09:43)
[2018-12-23] MEDS: CYANOCOBALAMIN (VITAMIN B-12) 1,000 MCG TABLET PO SCH (09:43)
[2018-12-23] MEDS: ENOXAPARIN SODIUM INJ 40 MG/0.4 ML DISP.SYRIN SUBCUT SCH (09:44)
[2018-12-23] MEDS: FLUTICASONE/VILANTEROL 100-25 MCG/DOSE IH SCH (09:44)
[2018-12-23] MEDS: FAMOTIDINE 20 MG TABLET PO SCH ×2 (09:44→21:23)
--- NOTE | 2018-12-23 14:54 | PDOC PROGRESS REPORT ---
Subjective Progress Note for:: 12/23/18 Subjective:: Patient seen by the bedside, she sustained a stroke, plan is for discharge to rehabilitation, today is Tuesday, patient will be a new admit for [facility] which typically occurs during the . Reason For Visit: STROKE Physical Exam Vital Signs: Temp Pulse Resp BP Pulse Ox 98.0 F 71 16 150/60 H 95 12/23/18 08:01 12/23/18 08:01 12/23/18 08:01 12/23/18 08:01 12/23/18 08:01 Intake & Output 12/22/18 12/23/18 12/24/18 06:59 06:59 06:59 Intake Total 620 1198 Balance 620 1198 Weight 57.8 kg 56.7 kg General appearance: PRESENT: no acute distress Eye exam: PRESENT: PERRLA Respiratory exam: PRESENT: clear to auscultation shelley Cardiovascular exam: PRESENT: +S1, +S2 GI/Abdominal exam: PRESENT: soft Neurological exam: PRESENT: alert Results Laboratory Results: 12/23/18 04:50 12/23/18 04:50 12/23/18 12/23/18 04:50 04:50 WBC 5.4 RBC 3.89 Hgb 12.8 Hct 37.7 MCV 97 MCH 32.8 MCHC 33.8 RDW 13.0 Plt Count 221 Seg Neutrophils % 58.2 Sodium 139.3 Potassium 3.9 Chloride 103 Carbon Dioxide 29 Anion Gap 7 BUN 12 Creatinine 0.59 Est GFR ( Amer) > 60 Glucose 120 H Calcium 9.9 12/19/18 12/19/18 12/19/18 17:35 21:08 21:08 Creatine Kinase 41 CK-MB (CK-2) 1.22 Troponin I < 0.012 < 0.012 12/20/18 12/20/18 12/20/18 03:04 03:04 09:32 Creatine Kinase 38 48 CK-MB (CK-2) 1.21 Troponin I < 0.012 12/20/18 09:32 Creatine Kinase CK-MB (CK-2) 1.47 Troponin I < 0.012 Impressions: Chest X-Ray 12/19/18 16:47 IMPRESSION: 1.2 cm nodular density overlying the right upper lobe. No consolidation or pleural effusion. Modified Barium Swallow 12/20/18 00:00 IMPRESSION: NO EVIDENCE OF PENETRATION OR ASPIRATION. PLEASE SEE SPEECH PATHOLOGIST REPORT FOR OTHER FINDINGS AND RECOMMENDATIONS. Head CTA 12/20/18 09:00 IMPRESSION: NO CTA EVIDENCE OF STENOSIS OR ANEURYSM OF THE [place]. Neck CTA 12/20/18 09:00 IMPRESSION: Mild calcified plaque bilaterally right greater than left. No high-grade stenosis. Head CT 12/22/18 16:41 IMPRESSION: No acute findings. EVIDENCE OF ACUTE STROKE: NO. Assessment & Plan - Diagnosis (1) Stroke Qualifiers: CVA mechanism: unspecified Qualified Code(s): I63.9 - Cerebral infarction, unspecified Is this a current diagnosis for this admission?: Yes Plan: continue treatment - Time Time Spent with patient: 15-24 minutes
[2018-12-23] MEDS: ATORVASTATIN CALCIUM 80 MG TABLET PO SCH (21:23)
[2018-12-24 06:50] LABS: ANION GAP 9 (5-19); BLOOD UREA NITROGEN 14 mg/dL (7-20); CALCIUM 9.4 mg/dL (8.4-10.2); CARBON DIOXIDE 27 mmol/L (22-30); CHLORIDE 103 mmol/L (98-107); GLUCOSE 123 mg/dL (75-110); POTASSIUM 4.1 mmol/L (3.6-5.0)
[2018-12-24] MEDS: ENOXAPARIN SODIUM INJ 40 MG/0.4 ML DISP.SYRIN SUBCUT SCH (09:35)
[2018-12-24] MEDS: ATENOLOL 50 MG TABLET PO SCH (09:36)
[2018-12-24] MEDS: CYANOCOBALAMIN (VITAMIN B-12) 1,000 MCG TABLET PO SCH (09:36)
[2018-12-24] MEDS: FAMOTIDINE 20 MG TABLET PO SCH ×2 (09:36→21:12)
[2018-12-24] MEDS: ASPIRIN 81 MG TABLET, ENT COATED PO SCH (09:36)
[2018-12-24] MEDS: THIAMINE HCL 100 MG TABLET PO SCH (09:36)
[2018-12-24] MEDS: CLOPIDOGREL BISULFATE 75 MG TABLET PO SCH (09:38)
[2018-12-24] MEDS: FLUTICASONE/VILANTEROL 100-25 MCG/DOSE IH SCH (09:42)
--- NOTE | 2018-12-24 16:17 | PDOC PROGRESS REPORT ---
Subjective Progress Note for:: 12/24/18 Subjective:: Patient seen by the bedside, she sustained a stroke, plan is for discharge to rehabilitation, today is Tuesday, patient will be a new admit for [facility] which typically occurs during the . Reason For Visit: STROKE Physical Exam Vital Signs: Temp Pulse Resp BP Pulse Ox 97.6 F 64 16 141/50 H 100 12/24/18 12:06 12/24/18 14:00 12/24/18 12:06 12/24/18 12:06 12/24/18 12:06 Intake & Output 12/23/18 12/24/18 12/25/18 06:59 06:59 06:59 Intake Total 1198 1297 Balance 1198 1297 Weight 56.7 kg 56.9 kg General appearance: PRESENT: no acute distress Eye exam: PRESENT: PERRLA Respiratory exam: PRESENT: clear to auscultation shelley Cardiovascular exam: PRESENT: +S1, +S2 GI/Abdominal exam: PRESENT: soft Results Laboratory Results: 12/23/18 04:50 12/24/18 05:56 12/24/18 05:56 Sodium 138.5 Potassium 4.1 Chloride 103 Carbon Dioxide 27 Anion Gap 9 BUN 14 Creatinine 0.58 Est GFR ( Amer) > 60 Glucose 123 H Calcium 9.4 12/19/18 12/19/18 12/19/18 17:35 21:08 21:08 Creatine Kinase 41 CK-MB (CK-2) 1.22 Troponin I < 0.012 < 0.012 12/20/18 12/20/18 12/20/18 03:04 03:04 09:32 Creatine Kinase 38 48 CK-MB (CK-2) 1.21 Troponin I < 0.012 12/20/18 09:32 Creatine Kinase CK-MB (CK-2) 1.47 Troponin I < 0.012 Impressions: Chest X-Ray 12/19/18 16:47 IMPRESSION: 1.2 cm nodular density overlying the right upper lobe. No consolidation or pleural effusion. Modified Barium Swallow 12/20/18 00:00 IMPRESSION: NO EVIDENCE OF PENETRATION OR ASPIRATION. PLEASE SEE SPEECH PA THOLOGIST REPORT FOR OTHER FINDINGS AND RECOMMENDATIONS. Head CTA 12/20/18 09:00 IMPRESSION: NO CTA EVIDENCE OF STENOSIS OR ANEURYSM OF THE [place]. Neck CTA 12/20/18 09:00 IMPRESSION: Mild calcified plaque bilaterally right greater than left. No high-grade stenosis. Head CT 12/22/18 16:41 IMPRESSION: No acute findings. EVIDENCE OF ACUTE STROKE: NO. Assessment & Plan - Diagnosis (1) Stroke Qualifiers: CVA mechanism: unspecified Qualified Code(s): I63.9 - Cerebral infarction, unspecified Is this a current diagnosis for this admission?: Yes Plan: continue treatment - Time Time Spent with patient: 15-24 minutes
[2018-12-24] MEDS: ATORVASTATIN CALCIUM 80 MG TABLET PO SCH (21:12)
--- NOTE | 2018-12-25 08:49 | PDOC PROGRESS REPORT ---
Subjective Progress Note for:: 12/25/18 Subjective:: Patient is currently doing better denied any dizziness no chest pain no short of breath but patient still confused especially at night times I think patients currently get a still benefit to going supervising environment either going rehab facilities due to the underlying encephalopathy's with some underlying vascular dementia's Otherwise patient having no other issues Reason For Visit: STROKE Physical Exam Vital Signs: Temp Pulse Resp BP Pulse Ox 97.4 F 71 18 150/56 H 97 12/25/18 03:27 12/25/18 07:00 12/25/18 03:27 12/25/18 03:27 12/25/18 03:27 Intake & Output 12/24/18 12/25/18 12/26/18 06:59 06:59 06:59 Intake Total 1297 595 Balance 1297 595 Weight 56.9 kg 57.8 kg General appearance: PRESENT: no acute distress, well-developed, well-nourished Head exam: PRESENT: atraumatic, normocephalic Eye exam: PRESENT: conjunctiva pink, EOMI, PERRLA. ABSENT: scleral icterus Ear exam: PRESENT: normal external ear exam Mouth exam: PRESENT: moist, tongue midline Neck exam: PRESENT: full ROM. ABSENT: carotid bruit, JVD, lymphadenopathy, thyromegaly Respiratory exam: PRESENT: clear to auscultation shelley Cardiovascular exam: PRESENT: RRR. ABSENT: diastolic murmur, rubs, systolic murmur Pulses: PRESENT: normal dorsalis pedis pul, +2 pedal pulses bilateral Vascular exam: PRESENT: normal capillary refill GI/Abdominal exam: PRESENT: normal bowel sounds, soft. ABSENT: distended, guarding, mass, organolmegaly, rebound, tenderness Rectal exam: PRESENT: deferred Musculoskeletal exam: PRESENT: ambulatory Neurological exam: PRESENT: alert, awake, oriented to person, oriented to place, oriented to time, oriented to situation, CN II-XII grossly intact. ABSENT: motor sensory deficit Psychiatric exam: PRESENT: appropriate affect, normal mood. ABSENT: homicidal ideation, suicidal ideation Skin exam: PRESENT: dry, intact, warm. ABSENT: cyanosis, rash Results Laboratory Results: 12/23/18 04:50 12/24/18 05:56 12/19/18 12/19/18 12/19/18 17:35 21:08 21:08 Creatine Kinase 41 CK-MB (CK-2) 1.22 Troponin I < 0.012 < 0.012 12/20/18 12/20/18 12/20/18 03:04 03:04 09:32 Creatine Kinase 38 48 CK-MB (CK-2) 1.21 Troponin I < 0.012 12/20/18 09:32 Creatine Kinase CK-MB (CK-2) 1.47 Troponin I < 0.012 Impressions: Chest X-Ray 12/19/18 16:47 IMPRESSION: 1.2 cm nodular density overlying the right upper lobe. No consolidation or pleural effusion. Modified Barium Swallow 12/20/18 00:00 IMPRESSION: NO EVIDENCE OF PENETRATION OR ASPIRATION. PLEASE SEE SPEECH PATHOLOGIST REPORT FOR OTHER FINDINGS AND RECOMMENDATIONS. Head CTA 12/20/18 09:00 IMPRESSION: NO CTA EVIDENCE OF STENOSIS OR ANEURYSM OF THE [place]. Neck CTA 12/20/18 09:00 IMPRESSION: Mild calcified plaque bilaterally right greater than left. No high-grade stenosis. Head CT 12/22/18 16:41 IMPRESSION: No acute findings. EVIDENCE OF ACUTE STROKE: NO. Assessment & Plan - Diagnosis (1) Stroke Qualifiers: CVA mechanism: unspecified Qualified Code(s): I63.9 - Cerebral infarction, unspecified Is this a current diagnosis for this admission?: Yes Plan: Currently all stable (2) Dysphagia Qualifiers: Dysphagia type: unspecified Qualified Code(s): R13.10 - Dysphagia, unsp ecified Is this a current diagnosis for this admission?: Yes Plan: Continues to follow with the speech therapist recommendations (3) Cardiac pacemaker Is this a current diagnosis for this admission?: Yes Plan: According to the landscape and yardwork laborer no sign of any A. fib in the pacemaker Integration (4) Chronic arthritis Is this a current diagnosis for this admission?: Yes (5) Hyperlipidemia Qualifiers: Hyperlipidemia type: unspecified Qualified Code(s): E78.5 - Hyperlipidemia, unspecified Is this a current diagnosis for this admission?: Yes Plan: Currently on a high-dose statin (6) Hypertension Qualifiers: Hypertension type: essential hypertension Qualified Code(s): I10 - Essential (primary) hypertension Is this a current diagnosis for this admission?: Yes Plan: Currently all stable (7) Migraine headache Qualifiers: Intractability: intractable Is this a current diagnosis for this admission?: Yes Plan: PRN pain medications (8) Peripheral vascular disease Is this a current diagnosis for this admission?: Yes (9) Chronic wound of extremity Is this a current diagnosis for this admission?: Yes (10) Encephalopathy Is this a current diagnosis for this admission?: Yes Plan: Currently all stable mostly underlying some vascular dementia's with forgetfulness will be consider start on Aricept (11) Dementia Qualifiers: Dementia type: vascular dementia Dementia behavioral disturbance: without behavioral disturbance Qualified Code(s): F01.50 - Vascular dementia without behavioral disturbance Is this a current diagnosis for this admission?: Yes Plan: Start the patient on Aricept 5 mg p.o. dailyAnd titrate in the next month - Time Time Spent with patient: 15-24 minutes Level of Care: IMCU Medications reviewed and adjusted accordingly: Yes Anticipated discharge: SNF Within: Other - Plan Summary Plan Summary: Continues to current medications
[2018-12-25] MEDS: FLUTICASONE/VILANTEROL 100-25 MCG/DOSE IH SCH (09:54)
[2018-12-25] MEDS: THIAMINE HCL 100 MG TABLET PO SCH (09:55)
[2018-12-25] MEDS: CYANOCOBALAMIN (VITAMIN B-12) 1,000 MCG TABLET PO SCH (09:55)
[2018-12-25] MEDS: CLOPIDOGREL BISULFATE 75 MG TABLET PO SCH (09:55)
[2018-12-25] MEDS: ASPIRIN 81 MG TABLET, ENT COATED PO SCH (09:55)
[2018-12-25] MEDS: FAMOTIDINE 20 MG TABLET PO SCH (09:55)
[2018-12-25] MEDS: ENOXAPARIN SODIUM INJ 40 MG/0.4 ML DISP.SYRIN SUBCUT SCH (09:55)
[2018-12-25] MEDS: ATENOLOL 50 MG TABLET PO SCH (09:55)
[2018-12-25 14:06] VITALS: BP 147/77
--- NOTE | 2018-12-25 16:46 | PDOC DISCHARGE SUMMARY ---
Impression - Admit/DC Date/PCP Admission Date/Primary Care Provider: 12/19/18 20:45 ADAMA MARES MD Discharge Date: 12/25/18 - Discharge Diagnosis (1) Stroke Is this a current diagnosis for this admission?: Yes (2) Dysphagia Is this a current diagnosis for this admission?: Yes (3) Cardiac pacemaker Is this a current diagnosis for this admission?: Yes (4) Chronic arthritis Is this a current diagnosis for this admission?: Yes (5) Hyperlipidemia Is this a current diagnosis for this admission?: Yes (6) Hypertension Is this a current diagnosis for this admission?: Yes (7) Migraine headache Is this a current diagnosis for this admission?: Yes (8) Peripheral vascular disease Is this a current diagnosis for this admission?: Yes (9) Chronic wound of extremity Is this a current diagnosis for this admission?: Yes (10) Encephalopathy Is this a current diagnosis for this admission?: Yes (11) Dementia Is this a current diagnosis for this admission?: Yes - Additional Information Discharge Diet: Cardiac Discharge Activity: Activity As Tolerated Referrals: SANG COLLIER MD [NO LOCAL MD] - 12/28/18 1:30 pm SUSU BULL PA [PHYSICIAN CONTROLLER REPAIRER AND TESTER] - 12/29/18 11:30 am Prescriptions: Atorvastatin Calcium [Lipitor 80 mg Tablet] 80 mg PO QHS #30 tablet Home Medications: Atenolol [Tenormin 50 mg Tablet] 50 mg PO DAILY 10/10/18 Cholecalciferol (Vitamin D3) [Vitamin D3 1000 Unit Tablet] 1,000 unit PO DAILY 10/10/18 Cyanocobalamin (Vitamin B-12) [Vitamin B-12 1000 mcg Tablet] 1,000 mcg PO DAILY 10/10/18 Glucosamine/Methylsulfonylmeth [Glucosamine-MSM 500-400 mg Cap] 1 cap PO DAILY 10/10/18 Thiamine HCl [Vitamin B-1] 50 mg PO DAILY 10/10/18 Ascorbic Acid [Vitamin C 500 mg Tablet] 500 mg PO DAILY 12/19/18 Budesonide/Formoterol Fumarate [Symbicort HFA 80-4.5 mcg Inhaler 6.9 gm] 2 puff IH Q12 12/19/18 Clopidogrel Bisulfate [Plavix 75 mg Tablet] 75 mg PO DAILY 12/19/18 Losartan Potassium [Cozaar 25 mg Tablet] 25 mg PO DAILY 12/19/18 [place]-3/Dha/Epa/Fish Oil [Fish Oil 1,000 mg Softgel] 1,000 mg PO DAILY 12/19/18 Vitamin E 400 unit PO DAILY 12/19/18 Atorvastatin Calcium [Lipitor 80 mg Tablet] 80 mg PO QHS #30 tablet 12/22/18 History of Present Illiness History of Present Illness: KANCHAN DASH is a 73 year old female t here today c/o intermittent headache since taking HCTZ land inspector started her on last Tuesday for leg swelling. Pt had stroke on 11/12 and was hospitalized, discharged home with sister and home health. Per friend, Melisa, who is with pt today, sister no longer stays with pt and home health nurse's last day was today. Pt alert and oriented but with intermittent confusion, forgetful. Pt's friend states EMS was called this morning d/t not being able to get in contact with pt, neighbor found pt's dog outside and pt's cane in driveway. Pt was found in the kitchen. Friend reports pt was not "acting herself". EMS was called, VSS, pt signed AMA paperwork to not go to hospital. Pt reports numbness/tingling to right arm this morning and neck pain with extension. 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 Patient was putting the aspirin and antiplatelet dual therapy for a month and the neurology suggested a single Plavix Patient was sent to the emergency department because of the patient with 3 days symptoms of the pain and patient is currently live by herself and the patient's head CT was found to be subacute infarct Patient's had a history of the migraine for a long time CT of the head and neck is negative for any acute finding Saw the patient is feeling better Patient is 2 days denied any headache no chest pain no short of breath Patient had a history of the complete heart block status post pacemaker currently see a Dr. 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 fib and a consult Dr. Boyle land inspector who saw the patient's regularly outpatient suggest no need for SUN Patient is already seen the neurologist in [facility] suggest aspirin and Plavix for a month and switch to the Plavix later on Patient's have a CT angiogram of the head and neck was done with no acute finding Patient's most continues aspirin Plavix and high-dose statin Patient has also wound with seen by the surgery suggest a Silvadene dressing Patient's son notices him wandering in the hallwayBut last 24 hours patient was doing 100% better according to the nursing staff Patient's used to drink alcohol Patient is already on thiamine multivitamins Patient is probably underlying vascular dementia's but currently alert awake oriented I believe patients get a benefit to go to the short-term rehab because patient still does not have any family member close to live Patient's continues to monitor follow outpatients neurology Try to contact with the sisters unable to answer on the discharge nurse is going to try again Patient follow outpatients cardiology Patient needs to follow outpatients neurology Patient's continues physical therapy continues wound care Speech therapy and modified barium swallow suggest mechanical chopped diet Speech therapy exercise See the speech therapy recommendation and modified barium swallow recommendations Patient otherwise alert awake oriented x3 patient's walk with the physical therapy without any problems surgeries already addressed wound in PT OT already in the speech therapy already addressed Unfortunately patients unable to go to the rehab facilities due to the insurance issues patient at this point discharged with the home with the family and home health and physical therapy Patient also going to see a neurologyWith ongoing confusions with possible dementia's Physical Exam Vital Signs: Temp Pulse Resp BP Pulse Ox 97.4 F 67 16 147/77 H 94 12/25/18 14:05 12/25/18 14:05 12/25/18 14:05 12/25/18 14:05 12/25/18 14:05 Intake & Output 12/24/18 12/25/18 12/26/18 06:59 06:59 06:59 Intake Total 1297 595 Balance 1297 595 Weight 56.9 kg 57.8 kg General appearance: PRESENT: no acute distress, well-developed, well-nourished Head exam: PRESENT: atraumatic, normocephalic Eye exam: PRESENT: conjunctiva pink, EOMI, PERRLA. ABSENT: scleral icterus Ear exam: PRESENT: normal external ear exam Mouth exam: PRESENT: moist, tongue midline Neck exam: ABSENT: carotid bruit, JVD, lymphadenopathy, thyromegaly Respiratory exam: PRESENT: clear to auscultation shelley. ABSENT: rales, rhonchi, wheezes Cardiovascular exam: PRESENT: RRR. ABSENT: diastolic murmur, rubs, systolic murmur Pulses: PRESENT: normal dorsalis pedis pul Vascular exam: PRESENT: normal capillary refill GI/Abdominal exam: PRESENT: normal bowel sounds, soft. ABSENT: distended, guarding, mass, organolmegaly, rebound, tenderness Rectal exam: PRESENT: deferred Extremities exam: PRESENT: full ROM. ABSENT: calf tenderness, clubbing, pedal edema Musculoskeletal exam: PRESENT: ambulatory Neurological exam: PRESENT: alert, awake, oriented to person, oriented to place, oriented to time, oriented to situation, CN II-XII grossly intact. ABSENT: motor sensory deficit Psychiatric exam: PRESENT: appropriate affect, normal mood. ABSENT: homicidal ideation, suicidal ideation Skin exam: PRESENT: dry, intact, warm. ABSENT: cyanosis, rash Results Laboratory Results: WBC 5.4 10^3/uL (4.0-10.5) 12/23/18 04:50 RBC 3.89 10^6/uL (3.72-5.28) 12/23/18 04:50 Hgb 12.8 g/dL (12.0-15.5) 12/23/18 04:50 Hct 37.7 % (36.0-47.0) 12/23/18 04:50 MCV 97 fl (80-97) 12/23/18 04:50 MCH 32.8 pg (27.0-33.4) 12/23/18 04:50 MCHC 33.8 g/dL (32.0-36.0) 12/23/18 04:50 RDW 13.0 % (11.5-14.0) 12/23/18 04:50 Plt Count 221 10^3/uL (150-450) 12/23/18 04:50 Lymph % (Auto) 24.5 % (13-45) 12/23/18 04:50 [place] % (Auto) 15.3 % (3-13) H 12/23/18 04:50 Eos % (Auto) 1.5 % (0-6) 12/23/18 04:50 Baso % (Auto) 0.5 % (0-2) 12/23/18 04:50 Absolute Neuts (auto) 3.1 10^3/uL (1.7-8.2) 12/23/18 04:50 Absolute Lymphs (auto) 1.3 10^3/uL (0.5-4.7) 12/23/18 04:50 Absolute Monos (auto) 0.8 10^3/uL (0.1-1.4) 12/23/18 04:50 Absolute Eos (auto) 0.1 10^3/uL (0.0-0.6) 12/23/18 04:50 Absolute Basos (auto) 0.0 10^3/uL (0.0-0.2) 12/23/18 04:50 Seg Neutrophils % 58.2 % (42-78) 12/23/18 04:50 PT 13.6 SEC (11.4-15.4) 12/19/18 17:35 INR 1.04 12/19/18 17:35 APTT 30.1 SEC (23.5-35.8) 12/19/18 17:35 Sodium 138.5 mmol/L (137-145) 12/24/18 05:56 Potassium 4.1 mmol/L (3.6-5.0) 12/24/18 05:56 Chloride 103 mmol/L (98-107) 12/24/18 05:56 Carbon Dioxide 27 mmol/L (22-30) 12/24/18 05:56 Anion Gap 9 (5-19) 12/24/18 05:56 BUN 14 mg/dL (7-20) 12/24/18 05:56 Creatinine 0.58 mg/dL (0.52-1.25) 12/24/18 05:56 Est GFR ( Amer) > 60 (>60) 12/24/18 05:56 Est GFR (MDRD) Non-Af > 60 (>60) 12/24/18 05:56 Glucose 123 mg/dL (75-110) H 12/24/18 05:56 Calcium 9.4 mg/dL (8.4-10.2) 12/24/18 05:56 Total Bilirubin 0.6 mg/dL (0.2-1.3) 12/20/18 03:04 Direct Bilirubin 0.0 mg/dL (0.0-0.4) 12/20/18 03:04 Neonat Total Bilirubin Not Reportable 12/20/18 03:04 Neonat Direct Bilirubin Not Reportable 12/20/18 03:04 Neonat Indirect Bili Not Reportable 12/20/18 03:04 AST 22 U/L (14-36) 12/20/18 03:04 ALT 16 U/L (<35) 12/20/18 03:04 Alkaline Phosphatase 42 U/L (38-126) 12/20/18 03:04 Creatine Kinase 48 U/L (30-135) 12/20/18 09:32 CK-MB (CK-2) 1.47 ng/mL (<4.55) 12/20/18 09:32 Troponin I < 0.012 ng/mL 12/20/18 09:32 Total Protein 6.3 g/dL (6.3-8.2) 12/20/18 03:04 Albumin 3.8 g/dL (3.5-5.0) 12/20/18 03:04 Triglycerides 101 mg/dL (<150) 12/20/18 03:04 Cholesterol 148.98 mg/dL (0-200) 12/20/18 03:04 LDL Cholesterol Direct 79 mg/dL (<100) 12/20/18 03:04 VLDL Cholesterol 20.0 mg/dL (10-31) 12/20/18 03:04 HDL Cholesterol 55 mg/dL (>40) 12/20/18 03:04 Urine Color YELLOW 12/19/18 22:40 Urine Appearance SLIGHTLY-CLOUDY 12/19/18 22:40 Urine pH 5.0 (5.0-9.0) 12/19/18 22:40 Ur Specific [place] 1.031 12/19/18 22:40 Urine Protein NEGATIVE mg/dL (NEGATIVE) 12/19/18 22:40 Urine Glucose (UA) NEGATIVE mg/dL (NEGATIVE) 12/19/18 22:40 Urine Ketones 20 mg/dL (NEGATIVE) H 12/19/18 22:40 Urine Blood NEGATIVE (NEGATIVE) 12/19/18 22:40 Urine Nitrite (Reflex) NEGATIVE (NEGATIVE) 12/19/18 22:40 Urine Bilirubin NEGATIVE (NEGATIVE) 12/19/18 22:40 Urine Urobilinogen NEGATIVE mg/dL (<2.0) 12/19/18 22:40 Leukocyte Esterase Rfl SMALL (NEGATIVE) H 12/19/18 22:40 Urine RBC (Auto) 3 /HPF 12/19/18 22:40 U Hyaline Cast (Auto) 1 /LPF 12/19/18 22:40 Urine WBC (Reflex) 23 /HPF 12/19/18 22:40 Squamous Epi Cells Auto 3 /HPF 12/19/18 22:40 Urine Mucus (Auto) FEW /LPF 12/19/18 22:40 Urine Ascorbic Acid 40 (NEGATIVE) H 12/19/18 22:40 12/19/18 12/19/18 12/20/18 17:35 21:08 03:04 CK-MB (CK-2) 1.22 1.21 Troponin I < 0.012 < 0.012 < 0.012 12/20/18 09:32 CK-MB (CK-2) 1.47 Troponin I < 0.012 Impressions: Chest X-Ray 12/19/18 16:47 IMPRESSION: 1.2 cm nodular density overlying the right upper lobe. No consolidation or pleural effusion. Head CT 12/19/18 16:47 IMPRESSION: Small area of cortical-subcortical hypodensity in the posterior left parietal lobe, possible subacute infarct. No hemorrhage. No midline shift. EVIDENCE OF ACUTE STROKE: YES. LEFT MCA Modified Barium Swallow 12/20/18 00:00 IMPRESSION: NO EVIDENCE OF PENETRATION OR ASPIRATION. PLEASE SEE SPEECH PATHOLOGIST REPORT FOR OTHER FINDINGS AND RECOMMENDATIONS. Head CTA 12/20/18 09:00 IMPRESSION: NO CTA EVIDENCE OF STENOSIS OR ANEURYSM OF THE [place] OF [place]. Neck CTA 12/20/18 09:00 IMPRESSION: Mild calcified plaque bilaterally right greater than left. No high-grade stenosis. Head CT 12/22/18 16:41 IMPRESSION: No acute findings. EVIDENCE OF ACUTE STROKE: NO. Plan Time Spent: Greater than 30 Minutes - Follow with the neurology Home health and physical therapy Discussed with the family patients need to supervise because of the ongoing encephalopathy dementia issues Stroke Is this a Stroke Patient?: Yes Stroke Pt being discharged on Anti-thrombolytic therapy?: Yes Stroke Pt being discharged on Anti-coagulation therapy?: No Reason(s) for not prescribing Anti-coagulation therapy:: Not indicated Stroke Pt being discharged on Statins?: Yes Acute Heart Failure - Is this a Heart Failure Patient?: No
== END 2018-12-25 15:02 | disposition home health service (06) | DRG 65 ==
LOC: ER 16:36 → EH 20:45 → 3N 22:33
PROVIDERS: ADMIT Family Medicine; ATTEND Family Medicine
DX: I63.9 Cerebral infarction, unspecified (principal); G93.40 Encephalopathy, unspecified; F01.50 Vascular dementia, unspecified severity, without behavioral disturbance, psychotic disturbance, mood disturbance, and anxiety; M19.90 Unspecified osteoarthritis, unspecified site; E78.5 Hyperlipidemia, unspecified; I10 Essential (primary) hypertension; G43.909 Migraine, unspecified, not intractable, without status migrainosus; I73.9 Peripheral vascular disease, unspecified; M54.2 Cervicalgia; R20.0 Anesthesia of skin; I25.10 Atherosclerotic heart disease of native coronary artery without angina pectoris; J44.9 Chronic obstructive pulmonary disease, unspecified; K21.9 Gastro-esophageal reflux disease without esophagitis; F32.9 Major depressive disorder, single episode, unspecified; R13.10 Dysphagia, unspecified; R42 Dizziness and giddiness; S40.921A Unspecified superficial injury of right upper arm, initial encounter; S80.921A Unspecified superficial injury of right lower leg, initial encounter; R40.2412 Glasgow coma scale score 13-15, at arrival to emergency department; I69.393 Ataxia following cerebral infarction; Z95.0 Presence of cardiac pacemaker; Z87.891 Personal history of nicotine dependence; Z79.02 Long term (current) use of antithrombotics/antiplatelets
CPT/HCPCS: 36415; 70450; 70496; 70498; 71046; 74230; 80048; 80053; 80061; 81001; 82550; 82553; 84484; 85025; 85610; 85730; 87086; 93005; 93010; 99285; J1650; J2060; J3490

== ENCOUNTER → 2019-01-12 | Outpatient (CLI) | payer MEDICARE, OTHER ==
--- NOTE | 2019-01-12 10:39 | RADIOLOGY REPORT (SQ) ---
EXAM DESCRIPTION: CT CHEST WITH COMPLETED DATE/TIME: 01/12/2019 9:37 am REASON FOR STUDY: R91.1 SOLITARY PULMONARY NODULE R91.1 SOLITARY PULMONARY NODULE COMPARISON: None. TECHNIQUE: CT scan of the chest performed using helical scanning technique with dynamic intravenous contrast injection. Images reviewed with lung, soft tissue and bone windows. Reconstructed coronal and sagittal MPR and MIP images reviewed. All images stored on PACS. All CT scanners at this facility use dose modulation, iterative reconstruction, and/or weight based d osing when appropriate to reduce radiation dose to as low as reasonably achievable (ALARA). [facility]: Dose Right [facility]: CareDose [facility]: Dose Right [facility]: Teradose 4D [facility]: Shijiebang CONTRAST TYPE AND DOSE: contrast/concentration: Isovue 350.00 mg/ml; Total Contrast Delivered: 80.0 ml; Total Saline Delivered: 55.0 ml RENAL FUNCTION: Creatinine 0.58 RADIATION DOSE: CT Rad equipment meets quality standard of care and radiation dose reduction techniq ues were employed. CTDIvol: 3.5 mGy. DLP: 140 mGy-cm. . LIMITATIONS: None. FINDINGS: LUNGS AND PLEURA: There is a right lower lobe pulmonary nodule abutting the major fissure and measuring 12 mm (series 4, image 57), stable from exam dated 12/20/2018. Sub 4 mm right middle l obe nodular opacity (series 4, image 96). No other discrete nodules or masses. No focal consolidati on, pleural effusion or pneumothorax. HILAR AND MEDIASTINAL STRUCTURES: No identified masses or abnormal nodes. HEART AND VASCULAR STRUCTURES: No aneurysm or dissection. Normal heart size. No pericardial effusio n. Scattered three-vessel coronary atherosclerosis. HARDWARE: None in the chest. UPPER ABDOMEN: No significant findings. Limited exam. THYROID AND OTHER SOFT TISSUES: No masses. No adenopathy. BONES: No acute bony abnormality. No suspicious lytic or blastic osseous lesions. OTHER: No other significant finding. IMPRESSION: Stable 12 mm right lower lobe pulmonary nodule compared to 12/20/2018. Follow-up recomm endations as below. COMMENT: FLEISCHNER CRITERIA FOR FOLLOW-UP OF PULMONARY NODULES Incidentally detected new nodules in persons 35 or older. HIGH RISK: History of smoking or other known risk factors. >8mm single solid nodule: LOW and HIGH RISK: consider CT, PET/CT or biopsy at 3 mo. TECHNICAL DOCUMENTATION: JOB ID: [id number] Quality ID # [id number]: Final reports with documentation of one or more dose reduction techniques (e.g., Au tomated exposure control, adjustment of the mA and/or kV according to patient size, use of iterative reconstruction technique) 2010 [employer]- All Rights Reserved Reading location - IP/workstation name: [email or web address]
== END ==
LOC: RAD 09:11
PROVIDERS: ATTEND Family Medicine
DX: R91.1 Solitary pulmonary nodule (principal)
CPT/HCPCS: 71260

== ENCOUNTER → 2019-02-20 | Outpatient (CLI) | payer MEDICARE, OTHER ==
--- NOTE | 2019-02-21 13:34 | RADIOLOGY REPORT (SQ) ---
EXAM DESCRIPTION: PET CT SKULL/THIGH COMPLETED DATE/TIME: 02/20/2019 8:07 pm REASON FOR STUDY: SOLITARY PULMONARY NODULE R91.1 SOLITARY PULMONARY NODULE COMPARISON: CT of the chest with contrast from 01/12/2019. RADIONUCLIDE AND DOSE: 9.51 mCi F18 FDG The route of agent administration: Intravenous FASTING BLOOD SUGAR: 80 mg/dl CONTRAST TYPE AND DOSE: No CT contrast given. TECHNIQUE: Blood glucose level was verified. Above dose of FDG was injected intravenously. 2-D seg mented attenuation correction images were obtained from the base of the skull to the midthighs. Nonc ontrast CT images were obtained for attenuation correction and fusion with emission images. CT image s were performed without oral or intravenous contrast and are not sensitive for parenchymal lesions. A series of overlapping emission PET images were obtained. Images reviewed and manipulated at [facility] work station by the radiologist. Images stored on PACS. LIMITATIONS: None. FINDINGS: HEAD AND NECK: The focus of asymmetric FDG uptake (maximum SUV of 3.1) within the left lyman bmandibular gland has no anatomic correlate on the CT. No other areas of abnormal metabolic activity are identified in the soft tissues of the neck. CHEST: The solid 13 x 10 mm subpleural nodule in the superior segment of the right lower lobe (image 82 of series 3) demonstrates no abnormal FDG uptake. No areas of abnormal metabolic activity are bhanu ntified in the chest. ABDOMEN AND PELVIS: The liver demonstrates heterogeneous non focal FDG uptake with an average SUV of 2. There is expected physiologic activity throughout the gastrointestinal and genitourinary tracts. No areas of abnormal metabolic activity are identified in the abdomen and pelvis. PROXIMAL LOWER EXTREMITIES: No areas of abnormal metabolic activity in the soft tissues of the lower extremities. BONES: The focal increased uptake (maximum SUV of 3) within the left posterolateral aspect of the cer vical spine could be related to facet joint arthropathy. ADDITIONAL CT FINDINGS: Left subclavian approach transvenous pacemaker. There is severe atherosclero tic calcification of the mitral annulus and moderate atherosclerotic calcification of the coronary ar teries. There is no pericardial effusion. The morphology of the liver is non cirrhotic. The spleen is normal in size. The gallbladder is present. There is no abnormality of the pancreas or adrenal glands. The abdominal aorta is nonaneurysmal. There is no retroperitoneal adenopathy, hemorrhage or mass. There is colonic diverticulosis without diverticulitis. There is no bowel obstruction, bowel wall thickening, or pericolonic/ perienteric inflammation. There is no hydronephrosis, nephrolithiasis, hydroureter or ureterolithiasis. The urinary bladder is distended and normal in appearance. There are calcified uterine fibroids. There is no abnormality of the adnexa that is apparent on CT. OTHER: No other findings. IMPRESSION: 1. The 13 x 10 mm subpleural nodule in the superior segment of the right lower lobe demo nstrates no abnormal FDG uptake. Continued CT follow-up of the nodules have commended. 2. Asymmetric focus of increased FDG uptake within the left submandibular gland that has no anatomic on the CT. TECHNICAL DOCUMENTATION: JOB ID: [id number] [employer]- All Rights Reserved Reading location - IP/workstation name: [email or web address]
== END ==
LOC: RAD 08:52
PROVIDERS: ATTEND Internal Medicine
DX: R91.1 Solitary pulmonary nodule (principal); J98.4 Other disorders of lung
CPT/HCPCS: 78815; A9552

== ENCOUNTER → 2019-07-30 | Outpatient (CLI) | payer MEDICARE, OTHER ==
--- NOTE | 2019-07-30 10:22 | RADIOLOGY REPORT (SQ) ---
EXAM DESCRIPTION: CT CHEST WITHOUT IMAGES COMPLETED DATE/TIME: 07/30/2019 7:21 am REASON FOR STUDY: OTHER SOLITARY PULMONARY NODULE (R91.1) R91.1 SOLITARY PULMONARY NODULE COMPARISON: PET from and CT of the chest with contrast from 01/12/2019. TECHNIQUE: CT scan performed of the chest without intravenous contrast. Images reviewed with lung, soft tissue and bone windows. Reconstructed coronal and sagittal MPR images reviewed. All images st ored on PACS. All CT scanners at this facility use dose modulation, iterative reconstruction, and/or weight based d osing when appropriate to reduce radiation dose to as low as reasonably achievable (ALARA). [facility]: Dose Right [facility]: CareDose [facility]: Dose Right [facility]: Teradose 4D [facility]: Smart [employer] RADIATION DOSE: CT Rad equipment meets quality standard of care and radiation dose reduction techniq ues were employed. CTDIvol: 4.0 mGy. DLP: 175 mGy-cm. LIMITATIONS: No technical limitations. FINDINGS: LUNGS AND PLEURA: The trachea main bronchi are patent. There is no bronchiectasis or mucu s plugging. There is no acute consolidation, ground-glass opacification, pleural effusion or pneumot horax. LUNG NODULES: The 11 x 9 mm subpleural nodule in the superior segment of the right lower lobe that a buts the interlobar fissure (image 56 of series 4) is stable. The solid 3 mm nodule in the left lowe r lobe (image 61 of series 4) and the perifissural nodule in the lingula (image 66 of series 4) are a lso stable. There are several new solid peripheral / peribronchial nodules in the left lower lobe th at measure up to 4 mm; for reference refer to to images 47, 73, 74 75, 84, and 87 of series 4. HILAR AND MEDIASTINAL STRUCTURES: No adenopathy or mass. HEART AND VASCULAR STRUCTURES: Atherosclerotic calcification of the thoracic aorta, coronary arteries and mitral annulus. There is no cardiomegaly or pericardial effusion. There is no thoracic aortic aneurysm. UPPER ABDOMEN: No acute abnormality. THYROID AND OTHER SOFT TISSUES: No mass or adenopathy. BONES: No acute findings. HARDWARE: Left subclavian vein approach dual lead transvenous pacemaker. OTHER: No other findings. IMPRESSION: The 11 x 9 mm subpleural nodule in the superior segment of the right lower lobe that abu ts the interlobar fissure (image 56 of series 4) is stable. There are several new solid peripheral / peribronchial nodules in the left lower lobe that measure up to 4 mm ; for reference refer to to images 47, 73, 74 75, 84, and 87 of series 4. COMMENT: A follow-up CT in 6 months is recommended to reassess the nodules in the left lower lobe. TECHNICAL DOCUMENTATION: JOB ID: [id number] Quality ID # [id number]: Final reports with documentation of one or more dose reduction techniques (e.g., Au tomated exposure control, adjustment of the mA and/or kV according to patient size, use of iterative reconstruction technique) 2010 [email or web address]- All Rights Reserved Reading location - IP/workstation name: [email or web address]
== END ==
LOC: RAD 07:02
PROVIDERS: ATTEND Internal Medicine
DX: R91.1 Solitary pulmonary nodule (principal); J98.4 Other disorders of lung
CPT/HCPCS: 71250

== ENCOUNTER → 2020-02-05 | Outpatient (CLI) | payer MEDICARE ==
--- NOTE | 2020-02-05 15:57 | RADIOLOGY REPORT (SQ) ---
EXAM DESCRIPTION: CT CHEST WITHOUT IMAGES COMPLETED DATE/TIME: 02/05/2020 7:17 am REASON FOR STUDY: (R91.1)SOLITARY PULMONARY NODULE R91.1 SOLITARY PULMONARY NODULE COMPARISON: Prior chest CTs, most recently dated 07/30/2019 TECHNIQUE: CT scan performed of the chest without intravenous contrast. Images reviewed with lung, soft tissue and bone windows. Reconstructed coronal and sagittal MPR images reviewed. All images st ored on PACS. All CT scanners at this facility use dose modulation, iterative reconstruction, and/or weight based d osing when appropriate to reduce radiation dose to as low as reasonably achievable (ALARA). [facility]: Dose Right [facility]: CareDose [facility]: Dose Right [facility]: Teradose 4D [facility]: [employer] RADIATION DOSE: CT Rad equipment meets quality standard of care and radiation dose reduction techniq ues were employed. CTDIvol: 6.1 mGy. DLP: 264 mGy-cm. mGy. LIMITATIONS: No technical limitations. FINDINGS: LUNGS AND PLEURA: Solid nodule in the superior segment right lower lobe measuring 1.2 x 1. 0 cm, similar to most recent examination and previously measuring 1.1 x 0.9 cm in January 2019. Foc al opacity anteriorly in the left upper lobe (series 4 image 75) probably represents atelectasis ther e is a tiny nodular opacity in the left upper lobe (image 63) which appears unchanged. Focal ground- glass opacity in the periphery of the right upper lobe (series 4, image 45) is also stable. No new s uspicious pulmonary nodule identified. No consolidation. Mild biapical scarring. No pleural effusi on or thickening. No pneumothorax. HILAR AND MEDIASTINAL STRUCTURES: No identified masses or abnormal nodes. No obvious aneurysm. HEART AND VASCULAR STRUCTURES: No aneurysm. No pericardial effusion. Coronary artery calcifications . Mitral valve annular calcifications. UPPER ABDOMEN: No significant findings. Limited exam. THYROID AND OTHER SOFT TISSUES: No masses. No adenopathy. BONES: No significant finding. HARDWARE: Left-sided pacemaker again demonstrated. OTHER: No other significant findings. IMPRESSION: 1. No significant change in right lower lobe 1.2 cm pulmonary nodule. Additional nodul ar opacities also appear similar to prior examination. Recommend additional follow-up chest CT in 6- 12 months to confirm 2 year stability. COMMENT: FLEISCHNER CRITERIA FOR FOLLOW-UP OF PULMONARY NODULES Incidentally detected new nodules in persons 35 or older. HIGH RISK: History of smoking or other known risk factors. 6-8 mm single solid nodule: LOW RISK: CT 6-12 mo; then consider CT 18-24 mo. HIGH RISK: CT 6-12 mo; t hen CT 18-24 mo. >8 mm multiple solid nodules: LOW RISK: CT 3-6 mo; then consider CT 18-24 mo. HIGH RISK: CT 3-6 mo; t hen CT 18-24 mo. Fleischner Criteria for Ground Glass Nodules: >6 mm ground glass single nodule: CT 6-12 mo, then CT every 2 yr until 5 yr >6 mm subsolid multiple nodules: CT 3-6 mo; subsequent management based on most suspicious nodules. TECHNICAL DOCUMENTATION: JOB ID: [id number] Quality ID # [id number]: Final reports with documentation of one or more dose reduction techniques (e.g., Au tomated exposure control, adjustment of the mA and/or kV according to patient size, use of iterative reconstruction technique) 2010 [employer]- All Rights Reserved Reading location - IP/workstation name: [email or web address]
== END ==
LOC: RAD 09:23
PROVIDERS: ATTEND Physician Assistant Medical
DX: R91.1 Solitary pulmonary nodule (principal)
CPT/HCPCS: 71250